=== PATIENT | female | born 1985 | race Caucasian/White ===

== ENCOUNTER 2017-02-20 12:13 | Emergency (ER) | payer MEDICAID ==
[~2017-02-20] VITALS: Ht 154.9 cm; Wt 59.7 kg
[~2017-02-20 12:13] MED LIST: FERR240T9 PO; PNV1TABL12 PO; PRO20 PO
[2017-02-20 12:19] VITALS: Ht 154.9 cm; Wt 59.7 kg
[2017-02-20 13:47] LABS: URINE BLOOD (Dip) POC 3+ (NEGATIVE)
[2017-02-20] MEDS ORDERED: NITR-58 PO (14:13)
[2017-02-20] MEDS ORDERED: PHEN-612 PO (14:13)
[2017-02-20] MEDS ORDERED: NAPR-688 PO (14:13)
[2017-02-20] MEDS ORDERED: CIPR500T4 PO (14:13)
--- NOTE | 2017-02-20 14:21 | ERD ---
ER Documentation Chief Complaint Chief Complaint HAS DYSURIA AND SOME BLOOD TINGED URINE HPI This 31-year-old female presents emergency room for burning pain on urination as well as suprapubic pain at times. No pain currently. No fevers. She is otherwise healthy. ROS All systems reviewed and are negative except as per history of present illness. Medications Home Meds Active Scripts Ciprofloxacin Hcl* (Ciprofloxacin Hcl*) 500 Mg Tablet, 500 MG PO BID, #10 TAB Prov:NOEL GALLEGOS DO 02/20/17 Nitrofurantoin Monohyd Macrocr* (Macrobid*) 100 Mg Capsr, 100 MG PO BID for 3 Days, CAP Prov:NOEL GALLEGOS DO 02/20/17 Phenazopyridine Hcl* (Phenazopyridine Hcl*) 100 Mg Tablet, 100 MG PO TID, #8 TAB Prov:NOEL GALLEGOS DO 02/20/17 Naproxen* (Naproxen*) 500 Mg Tablet, 500 MG PO BID Y for PAIN for 20 Days, TAB Prov:NOEL GALLEGOS DO 02/20/17 Reported Medications Nifedipine* (Procardia*) 20 Mg Cap, 20 MG PO Q6, CAP 02/03/14 Ferrous Gluconate (Iron) 1 Tab Tablet, 1 TAB PO DAILY 01/22/14 Pnv Cmb#21/Iron/Folic Acid ( Complete Caplet) 1 Tab Tablet, 1 TAB PO DAILY 09/18/13 Allergies Allergies: Coded Allergies: No Known Drug Allergies (Verified Allergy, Mild, 12/17/13) PMhx/Soc History of Surgery: No Anesthesia Reaction: No Hx Neurological Disorder: No Hx Respiratory Disorders: No Hx Cardiac Disorders: No Hx Psychiatric Problems: No Hx Miscellaneous Medical Probl: No Hx Alcohol Use: No Hx Substance Use: No Hx Tobacco Use: No Physical Exam Vitals Vital Signs Date Time Temp Pulse Resp B/P Pulse Ox O2 Delivery O2 Flow Rate FiO2 02/20/17 12:19 99.9 111 18 116/77 100 Physical Exam Const: [] No distress Abd: Soft, mild suprapubic tenderness, non distended. Normal bowel sounds Skin: No petechiae or rashes Back: No midline or flank tenderness Ext: No cyanosis, or edema Neur: Awake and alert Results 24 hrs Laboratory Tests Test 02/20/17 13:48 Bedside Urine pH (LAB) 7.0 Bedside Urine Protein (LAB) 1+ Bedside Urine Glucose (UA) Negative Bedside Urine Ketones (LAB) Negative Bedside Urine Blood 3+ Bedside Urine Nitrite (LAB) Negative Bedside Urine Leukocyte Esterase (L 2+ Procedures/MDM UTI and a healthy young adult female with no complications. Asymptomatic in the ER. Mild hematuria. UTI was confirmed and patient is not . I have low suspicion for bladder malignancy or pyelonephritis. I am going to discharge with Cipro as well as Pyridium and naproxen. Primary care follow-up in 2-3 days and return precautions given. Departure Diagnosis: Primary Impression: UTI (urinary tract infection) Condition: Stable Patient Instructions: Understanding Urinary Tract Infections (UTIs) Additional Instructions: Call your primary care doctor TOMORROW for an appointment during the next 2-3 days.See the doctor sooner or return here if your condition worsens before your appointment time. NOEL GALLEGOS DO Feb 20, 2017 14:21
== END 2017-02-20 14:17 | disposition home or self-care (01) ==
LOC: FTE 12:13
DX: N39.0 Urinary tract infection, site not specified (principal)
CPT/HCPCS: 81003; Z7502; 99284

== ENCOUNTER 2018-05-03 13:03 | Emergency (ER) | payer MEDICAID ==
[~2018-05-03] VITALS: Wt 68.8 kg
[~2018-05-03 13:03] MED LIST changes: +CIPR500T4 PO; +NAPR-688 PO; +NITR-58 PO; +PHEN-716 PO
[2018-05-03] MEDS ORDERED: LIDOCAINE 2% VISC 15 ML CUP PO ONE (15:30)
[2018-05-03] MEDS ORDERED: ACET-141 PO (16:19)
[2018-05-03] MEDS ORDERED: CPRHC10OT OTIC (16:21)
--- NOTE | 2018-05-03 16:24 | ERD ---
ER Documentation Chief Complaint Chief Complaint L>R ear pain x1.5mo; p azithro+ neomycin tx no relief. 14 wks preg ROS All systems reviewed and are negative except as per history of present illness. Medications Home Meds Active Scripts Ciprofloxacin Hcl/HC (Cipro HC Otic Suspension) 10 Ml Drops.susp, 4 DROP OTIC BID for outter ear infection for 7 Days, #1 BOTTLE Prov:SARAH GERMAN DO 05/03/18 Acetaminophen* (Acetaminophen*) 500 MG Extra Strength Tablet, 500 MG PO Q4H PRN for PAIN AND OR ELEVATED TEMP, #30 TAB Prov:SARAH GERMAN DO 05/03/18 Ciprofloxacin Hcl* (Ciprofloxacin Hcl*) 500 Mg Tablet, 500 MG PO BID, #10 TAB Prov:NOEL GALLEGOS DO 02/20/17 Nitrofurantoin Monohyd Macrocr* (Macrobid*) 100 Mg Capsr, 100 MG PO BID for 3 Days, CAP Prov:NOEL GALLEGOS DO 02/20/17 Phenazopyridine Hcl* (Phenazopyridine Hcl*) 100 Mg Tablet, 100 MG PO TID, #8 TAB Prov:NOEL GALLEGOS DO 02/20/17 Naproxen* (Naproxen*) 500 Mg Tablet, 500 MG PO BID PRN for PAIN for 20 Days, TAB Prov:NOEL GALLEGOS DO 02/20/17 Reported Medications Nifedipine* (Procardia*) 20 Mg Cap, 20 MG PO Q6, CAP 02/03/14 Ferrous Gluconate (Iron) 1 Tab Tablet, 1 TAB PO DAILY 01/22/14 Pnv Cmb#21/Iron/Folic Acid ( Complete Caplet) 1 Tab Tablet, 1 TAB PO DAILY 09/18/13 Allergies Allergies: Coded Allergies: No Known Drug Allergies (Verified Allergy, Mild, 12/17/13) PMhx/Soc History of Surgery: Yes (c section) Anesthesia Reaction: No Hx Neurological Disorder: No Hx Respiratory Disorders: No Hx Cardiac Disorders: No Hx Psychiatric Problems: No Hx Miscellaneous Medical Probl: No Hx Alcohol Use: No Hx Substance Use: No Hx Tobacco Use: No Physical Exam Vitals Vital Signs Date Temp Pulse Resp B/P (MAP) Pulse Ox O2 O2 Flow FiO2 Time Delivery Rate 05/03/18 98.6 88 16 126/65 98 13:14 (85) Physical Exam Const: No acute distress Head: Atraumatic Eyes: Normal Conjunctiva ENT: Normal External Ears, Nose and Mouth. Neck: Full range of motion. No meningismus. Resp: Clear to auscultation bilaterally Cardio: Regular rate and rhythm, no murmurs Abd: Soft, non tender, non distended. Normal bowel sounds Skin: No petechiae or rashes Back: No midline or flank tenderness Ext: No cyanosis, or edema Neur: Awake and alert Psych: Normal Mood and Affect Results 24 hrs Current Medications Medications Dose Sig/Racheal Start Time Status Last (Trade) Ordered Route PRN Stop Time Admin Dose Reason Admin Lidocaine 15 ml ONCE ONCE 05/03/18 DC 05/03/18 (Xylocaine PO 15:30 05/03/18 15:29 (Viscous)) 15:31 Departure Diagnosis: Primary Impression: Otitis externa Otitis externa type: diffuse Chronicity: acute Laterality: left Qualified Codes: H60.312 - Diffuse otitis externa, left ear Condition: Fair Patient Instructions: External Ear Infection (Adult) Referrals: [facility], [facility]1983 CLINICS YOU HAVE RECEIVED A MEDICAL SCREENING EXAM AND THE RESULTS INDICATE THAT YOU DO NOT HAVE A CONDITION THAT REQUIRES URGENT TREATMENT IN THE EMERGENCY DEPARTMENT. FURTHER EVALUATION AND TREATMENT OF YOUR CONDITION CAN WAIT UNTIL YOU ARE SEEN IN YOUR DOCTORS OFFICE WITHIN THE NEXT 1-2 DAYS. IT IS YOUR RESPONSIBILITY TO MAKE AN APPOINTMENT FOR FOLOW-UP CARE. IF YOU HAVE A PRIMARY DOCTOR --you should call your primary doctor and schedule an appointment IF YOU DO NOT HAVE A PRIMARY DOCTOR YOU CAN CALL OUR PHYSICIAN REFERRAL HOTLINE AT IF YOU CAN NOT AFFORD TO SEE A PHYSICIAN YOU CAN CHOSE FROM THE FOLLOWING [facility], [facility] CLINICS [facility] [address] [facility] [address] [facility]. [facility] [address] [facility] [address] [facility] [address] [facility]. [facility]. [address] Additional Instructions: Call your primary care doctor TOMORROW for an appointment during the next 1-2 days.See the doctor sooner or return here if your condition worsens before your appointment time. SARAH GERMAN DO May 03, 2018 16:24
[2018-05-03 16:56] VITALS: BP 121/68; PULSE 79; RESP 16
== END 2018-05-03 16:59 | disposition home or self-care (01) ==
LOC: FTE 13:03
DX: O99.89 Other specified diseases and conditions complicating pregnancy, childbirth and the puerperium (principal); H60.312 Diffuse otitis externa, left ear; Z3A.14 14 weeks gestation of pregnancy
CPT/HCPCS: 99283

== ENCOUNTER 2018-05-24 02:38 | Emergency (ER) | payer MEDICAID ==
[~2018-05-24] VITALS: Ht 157.5 cm; Wt 71.4 kg
[~2018-05-24 02:38] MED LIST changes: +ACET-141 PO; +CPRHC10OT OTIC
[2018-05-24 02:42] VITALS: Ht 157.5 cm; Wt 71.4 kg
--- NOTE | 2018-05-24 02:55 | ERD ---
ER Documentation Chief Complaint Chief Complaint LEFT EAR PAIN X YESTERDAY HPI 32-year-old female, presents the emergency department, complaining of 1 day with left ear pain sharp, constant, 8/10, associated with subjective fever, sore throat and general malaise. The patient has not taken any medications at this time. ROS All systems reviewed and are negative except as per history of present illness. Medications Home Meds Active Scripts Acetaminophen* (Tylenol*) 325 Mg Tablet, 2 TAB PO Q8 PRN for PAIN AND OR CONNIE VATED TEMP, #20 TAB Prov:MORENA DUNBAR MD 05/24/18 Amoxicillin* (Amoxicillin*) 500 Mg Cap, 500 MG PO TID for 7 Days, CAP Prov:MORENA DUNBAR MD 05/24/18 Neomycin/Polymyxin/Hydrocort* (Cortisporin* Otic) 10 Ml Susp, 4 DROP LEFT EAR QID for 7 Days, EA Prov:MORENA DUNBAR MD 05/24/18 Ciprofloxacin Hcl/HC (Cipro HC Otic Suspension) 10 Ml Drops.susp, 4 DROP OTIC BID for outter ear infection for 7 Days, #1 BOTTLE Prov:MAXISARAH DO 05/03/18 Acetaminophen* (Acetaminophen*) 500 MG Extra Strength Tablet, 500 MG PO Q4H PRN for PAIN AND OR ELEVATED TEMP, #30 TAB Prov:GERMANSARAH DO 05/03/18 Ciprofloxacin Hcl* (Ciprofloxacin Hcl*) 500 Mg Tablet, 500 MG PO BID, #10 TAB Prov:NOEL GALLEGOS DO 02/20/17 Nitrofurantoin Monohyd Macrocr* (Macrobid*) 100 Mg Capsr, 100 MG PO BID for 3 Days, CAP Prov:NOEL GALLEGOS DO 02/20/17 Phenazopyridine Hcl* (Phenazopyridine Hcl*) 100 Mg Tablet, 100 MG PO TID, #8 TAB Prov:NOEL GALLEGOS DO 02/20/17 Naproxen* (Naproxen*) 500 Mg Tablet, 500 MG PO BID PRN for PAIN for 20 Days, TAB Prov:NOEL GALLEGOS DO 02/20/17 Reported Medications Nifedipine* (Procardia*) 20 Mg Cap, 20 MG PO Q6, CAP 02/03/14 Ferrous Gluconate (Iron) 1 Tab Tablet, 1 TAB PO DAILY 01/22/14 Pnv Cmb#21/Iron/Folic Acid ( Complete Caplet) 1 Tab Tablet, 1 TAB PO DAILY 09/18/13 Allergies Allergies: Coded Allergies: No Known Drug Allergies (Verified Allergy, Mild, 12/17/13) PMhx/Soc Medical and Surgical Hx: pt denies Medical Hx, pt denies Surgical Hx History of Surgery: Yes (c section) Anesthesia Reaction: No Hx Neurological Disorder: No Hx Respiratory Disorders: No Hx Cardiac Disorders: No Hx Psychiatric Problems: No Hx Miscellaneous Medical Probl: No Hx Alcohol Use: No Hx Substance Use: No Hx Tobacco Use: No Smoking Status: Never smoker FmHx Family History: No diabetes, No coronary disease Physical Exam Vitals Vital Signs Date Temp Pulse Resp B/P (MAP) Pulse Ox O2 O2 Flow FiO2 Time Delivery Rate 05/24/18 87 16 125/70 100 Room Air 04:31 (88) 05/24/18 98.2 97 22 116/69 97 02:42 (85) Physical Exam Patient alert, oriented, vital signs stable. HEENT: Normocephalic, atraumatic. EYES: PERRLA, EOMI, Sclera and conjunctiva appear normal. EARS: Left ear with significant tympanic membrane erythema, retraction and opacity with edema of the canal. Contralateral ear normal. THROAT: Erythematous oropharynx. NECK: Supple, No lymphadenopathy. Full ROM without pain or tenderness. HEART: RRR, no rubs, murmurs, clicks or gallops. LUNGS: Clear to auscultation. ABDOMEN: Soft, non-tender without masses or hepatosplenomegaly. EXTREMITIES: No edema bilaterally. BACK: Full ROM, no deformity, normal back exam NEURO: Cranial nerves grossly intact, no motor or sensory deficit Results 24 hrs Current Medications Medications Dose Sig/Racheal Start Time Status Last (Trade) Ordered Route PRN Stop Time Admin Dose Reason Admin 1 tab ONCE ONCE 05/24/18 DC 05/24/18 Acetaminophen PO 03:30 03:27 / 05/24/18 03:31 Hydrocodone Bitart (Jewell (5/325)) Procedures/MDM Vital signs stable, differential diagnosis include but not limited to: infection bacterial/viral/fungal. Tonsillitis, eustachian dysfunction, allergies, foreign body, cholesteatoma. Less likely mastoiditis, malignant otitis, meningitis. Physical examination and clinical presentation consistent most likely with left otitis media. During the ED course the patient remained stable, no new complaints. Clinical impression discussed with the patient who agrees with management. The patient is stable to be treated outpatient and will be discharged home with a Rx for antibiotics and ibuprofen. Some side effects of prescribed medications (headache, rash, nausea, vomiting, diarrhea, drowsiness, bleeding, hypertension, interactions with other medications) were reviewed. The patient was instructed to follow up with the primary care provider in the next 48h. If symptoms persist, worsen or new symptoms develop, then patient should return to the ED immediately. Disclaimer: Inadvertent spelling and grammatical errors are likely due to EHR/dictation software use and do not reflect on the overall quality of patient care. Also, please note that the electronic time recorded on this note does not necessarily reflect the actual time of the patient encounter. Departure Diagnosis: Primary Impression: Left otitis media Condition: Stable Additional Instructions: Muchas willa por [facility] para pyle servicio. Esperamos que en pyle visita a la femi de emergencia pyle problema medico haya sido solucionado y que se sienta mucho mejor. Para estar seguros que pyle mejoria sigue en proceso, le pedimos el favor de hacer andrew red de seguimiento medico con pyle doctor primario en los proximos 2-4 payan. Lleve con usted estos documentos y las medicinas recetadas. Si efrain sintomas empeoran, NO SE ESPERE, por favor regrese a femi de emergencia INMEDIATAMENTE. En silvana que usted no tenga un mdico de atencin primaria: Llame al mdico o clnica comunitaria de referencia que aparece abajo didi las horas de consultorio para hacer andrew red para que le vean. CLINICAS: [facility] 284 [phone] [address] [facility] 528 [phone] [address] [facility] 596 [phone] [address] [facility] [phone] [address] [facility] 430 [phone] [address] [facility]. [phone] MORENA MATHEW MD May 24, 2018 02:55
[2018-05-24] MEDS ORDERED: HYDROCODONE/APAP (5/325) TAB PO ONE (03:30)
[2018-05-24] MEDS ORDERED: NPH10OT LEFT EAR (04:20)
[2018-05-24] MEDS ORDERED: AMOX500C2 PO (04:20)
[2018-05-24] MEDS ORDERED: ACET325T33 PO (04:20)
[2018-05-24 04:31] VITALS: BP 125/70; PULSE 87; RESP 16
== END 2018-05-24 04:31 | disposition home or self-care (01) ==
LOC: FTE 02:38
DX: H66.92 Otitis media, unspecified, left ear (principal)
CPT/HCPCS: Z7502; Z7610; 99283

== ENCOUNTER 2018-06-08 11:56 | Emergency (ER) | payer MEDICAID ==
[~2018-06-08] VITALS: Ht 167.6 cm; Wt 73.3 kg
[~2018-06-08 11:56] MED LIST changes: +ACET325T33 PO; +AMOX500C2 PO; +NPH10OT LEFT EAR
[2018-06-08 11:58] VITALS: BP 125/58; PULSE 98; RESP 20; Ht 167.6 cm; Wt 73.3 kg
[2018-06-08] MEDS ORDERED: NPH10OT RIGHT EAR (13:37)
--- NOTE | 2018-06-08 13:50 | ERD ---
ER Documentation Chief Complaint Chief Complaint Complains of right ear pain x 3 days HPI 32-year-old female patient with no significant past medical history, currently presents to the ED complaining of right ear pain that started 3 days ago. Patient denies using Q-tips. Patient denies any vaginal bleeding, vaginal discharge, chest pain, shortness of breath, nausea, vomiting, diarrhea dysuria, urgency, frequency, hematuria. She reports that she has seen an ears and nose throat specialist, was given a prescription for ciprofloxacin for the left ear, 2 weeks ago. Now reports that she feels like she has a right ear infection. ROS All systems reviewed and are negative except as per history of present illness. Medications Home Meds Active Scripts Neomycin/Polymyxin/Hydrocort* (Cortisporin* Otic) 10 Ml Susp, 4 DROP RIGHT EAR QID, #1 EA Prov:KRISSY HYDE PA-C 06/08/18 Acetaminophen* (Tylenol*) 325 Mg Tablet, 2 TAB PO Q8 PRN for PAIN AND OR ELEVATED TEMP, #20 TAB Prov:MORENA DUNBAR MD 05/24/18 Amoxicillin* (Amoxicillin*) 500 Mg Cap, 500 MG PO TID for 7 Days, CAP Prov:MORENA DUNBAR MD 05/24/18 Neomycin/Polymyxin/Hydrocort* (Cortisporin* Otic) 10 Ml Susp, 4 DROP LEFT EAR QID for 7 Days, EA Prov:MORENA DUNBAR MD 05/24/18 Ciprofloxacin Hcl/HC (Cipro HC Otic Suspension) 10 Ml Drops.susp, 4 DROP OTIC BID for outter ear infection for 7 Days, #1 BOTTLE Prov:SARAH GERMAN DO 05/03/18 Acetaminophen* (Acetaminophen*) 500 MG Extra Strength Tablet, 500 MG PO Q4H PRN for PAIN AND OR ELEVATED TEMP, #30 TAB Prov:SARAH GERMAN DO 05/03/18 Ciprofloxacin Hcl* (Ciprofloxacin Hcl*) 500 Mg Tablet, 500 MG PO BID, #10 TAB Prov:NOEL GALLEGOS DO 02/20/17 Nitrofurantoin Monohyd Macrocr* (Macrobid*) 100 Mg Capsr, 100 MG PO BID for 3 Days, CAP Prov:NOEL GALLEGOS DO 02/20/17 Phenazopyridine Hcl* (Phenazopyridine Hcl*) 100 Mg Tablet, 100 MG PO TID, #8 TAB Prov:NOEL GALLEGOS DO 02/20/17 Naproxen* (Naproxen*) 500 Mg Tablet, 500 MG PO BID PRN for PAIN for 20 Days, TAB Prov:NOEL GALLEGOS DO 02/20/17 Reported Medications Nifedipine* (Procardia*) 20 Mg Cap, 20 MG PO Q6, CAP 02/03/14 Ferrous Gluconate (Iron) 1 Tab Tablet, 1 TAB PO DAILY 01/22/14 Pnv Cmb#21/Iron/Folic Acid ( Complete Caplet) 1 Tab Tablet, 1 TAB PO DAILY 09/18/13 Allergies Allergies: Coded Allergies: No Known Drug Allergies (Verified Allergy, Mild, 12/17/13) PMhx/Soc History of Surgery: Yes (c section) Anesthesia Reaction: No Hx Neurological Disorder: No Hx Respiratory Disorders: No Hx Cardiac Disorders: No Hx Psychiatric Problems: No Hx Miscellaneous Medical Probl: No Hx Alcohol Use: No Hx Substance Use: No Hx Tobacco Use: No Smoking Status: Never smoker FmHx Family History: No diabetes, No coronary disease Physical Exam Vitals Vital Signs Date Temp Pulse Resp B/P (MAP) Pulse Ox O2 O2 Flow FiO2 Time Delivery Rate 06/08/18 99.1 98 20 125/58 99 11:58 (80) Physical Exam Const: [id number], well-nourished. In no acute distress. Head: Atraumatic, normocephalic Eyes: Normal Conjunctiva without injection. No purulent discharge. PERRL. EOMI ENT: Normal external ear. Slight purulent discharge noted of the right ear canal with some erythema over right TM. No tenderness palpation of the bilateral mastoids. Perforated left TM. Nasal canal clear with normal turbinates. Moist oropharynx without tonsillar exudates. Non-erythematous pharynx. Uvula midline. No drooling. No trismus. Neck: Full range of motion. No meningismus. No cervical lymphadenopathy. Resp: Clear to auscultation bilaterally. No wheezing, rhonchi, rales, or crackles. No accessory muscle use. No retractions. Cardio: Regular rate and rhythm. No murmurs, rubs or gallops. Abd: Soft, non tender, non distended. Normal bowel sounds. No palpable masses. No rebound tenderness. No guarding. Skin: No petechiae or rashes Back: No midline tenderness. No CVA tenderness. Ext: No cyanosis, or edema. Neur: Awake and alert. Psych: Normal Mood and Affect Procedures/MDM 32-year-old female patient with no significant past medical history presents to ED complaining of right ear pain that started 3 days ago. Patient is afebrile and nontoxic-appearing. Patient's physical exam is consistent with otitis externa with some discharge noted of her right ear canal. TMs pearly doll however slightly erythematous. Patient does not have tenderness to palpation of mastoid. Low suspicion for otitis media or mastoiditis. Patient's physical exam include lungs which were clear to auscultation and a normal pulse oximetry. Patient is speaking in full sentences. There is a low suspicion for tympanic membrane rupture, pneumonia, epiglottitis, croup, viral/strep pharyngitis, sinusitis, peritonsillar abscess, retropharyngeal abscess, meningitis, sepsis, acute abdomen or other emergent conditions. Discussed with Dr. Holland who agreed with management and discharge plan. Since patient that since she has a perforated TM of the left ear, strictly instructed not to use Cortisporin as this is an ototoxic medication. Safe for right ear. Diagnosis: Right Ear Pain Discharge medications: Cortisporin Follow up with primary care physician in 1-2 days. Instructed patient to return to the ED sooner for any worsening symptoms. Patient's questions were answered. Patient is hemodynamically stable. Patient understood and agreed with discharge plan. Patient discharged stable. Disclaimer: Inadvertent spelling and grammatical errors are likely due to EHR/dictation software use and do not reflect on the overall quality of patient care. Also, please note that the electronic time recorded on this note does not necessarily reflect the actual time of the patient encounter. Departure Diagnosis: Primary Impression: Right ear pain Condition: Stable Patient Instructions: External Ear Infection (Adult) Referrals: COMMUNITY CLINICS YOU HAVE RECEIVED A MEDICAL SCREENING EXAM AND THE RESULTS INDICATE THAT YOU DO NOT HAVE A CONDITION THAT REQUIRES URGENT TREATMENT IN THE EMERGENCY DEPARTMENT. FURTHER EVALUATION AND TREATMENT OF YOUR CONDITION CAN WAIT UNTIL YOU ARE SEEN IN YOUR DOCTORS OFFICE WITHIN THE NEXT 1-2 DAYS. IT IS YOUR RESPONSIBILITY TO MAKE AN APPOINTMENT FOR FOLOW-UP CARE. IF YOU HAVE A PRIMARY DOCTOR --you should call your primary doctor and schedule an appointment IF YOU DO NOT HAVE A PRIMARY DOCTOR YOU CAN CALL OUR PHYSICIAN REFERRAL HOTLINE AT IF YOU CAN NOT AFFORD TO SEE A PHYSICIAN YOU CAN CHOSE FROM THE FOLLOWING [facility] [address] [facility] [address] [facility] [address] [facility] [address] [facility] [address] [facility]. [facility] [address] [facility]. [facility] YOU HAVE RECEIVED A MEDICAL SCREENING EXAM AND THE RESULTS INDICATE THAT YOU DO NOT HAVE A CONDITION THAT REQUIRES URGENT TREATMENT IN THE EMERGENCY DEPARTMENT. FURTHER EVALUATION AND TREATMENT OF YOUR CONDITION CAN WAIT UNTIL YOU ARE SEEN IN YOUR DOCTORS OFFICE WITHIN THE NEXT 1-2 DAYS. IT IS YOUR RESPONSIBILITY TO MAKE AN APPOINTMENT FOR FOLOW-UP CARE. IF YOU HAVE A PRIMARY DOCTOR --you should call your primary doctor and schedule and appointment IF YOU DO NOT HAVE A PRIMARY DOCTOR YOU CAN CALL OUR PHYSICIAN REFERRAL HOTLINE AT . IF YOU CAN NOT AFFORD TO SEE A PHYSICIAN YOU CAN CHOSE FROM THE FOLLOWING [facility]: [facility] [address] [place] [address] [facility] [address] [place] [address] [facility] [address] [place] [address] [facility] Additional Instructions: Call your primary care doctor TOMORROW for an appointment during the next 2-3 days for a referral to see an ears nose throat specialist.See the doctor sooner or return here if your condition worsens before your appointment time. KRISSY HYDE PA-C Jun 08, 2018 13:50
== END 2018-06-08 14:14 | disposition home or self-care (01) ==
LOC: FTE 11:56
DX: O99.89 Other specified diseases and conditions complicating pregnancy, childbirth and the puerperium (principal); H92.01 Otalgia, right ear; Z3A.00 Weeks of gestation of pregnancy not specified
CPT/HCPCS: 99283

== ENCOUNTER 2018-08-30 13:55 | Emergency (ER) | payer MEDICAID ==
[~2018-08-30] VITALS: Ht 160 cm; Wt 80.5 kg
[~2018-08-30 13:55] MED LIST changes: +NPH10OT RIGHT EAR
[2018-08-30 14:03] VITALS: Ht 160 cm; Wt 80.5 kg
[2018-08-30] MEDS ORDERED: SOD CHLORIDE 0.9% 1,000 ML IV STA (14:17)
--- NOTE | 2018-08-30 14:22 | ERD ---
ER Documentation Chief Complaint Chief Complaint sent from the clinic for panic/anxiety, tachycardia; 31 wks preg HPI 33-year-old woman is 31 weeks by dates and previously confirmed normal ultrasound presents with anxiety, palpitations, chest discomfort. Symptoms began while at the medical clinic she was therefore routine follow-up. She states she has had milder symptoms similar to this when her fetus moves or if she is laying in an awkward position but denies symptoms lasting this long. She has had no cough, no fevers or chills, no shortness of breath, no vomiting or diarrhea, no dysuria or vaginal discharge. ROS All systems reviewed and are negative except as per history of present illness. Medications Home Meds Active Scripts Neomycin/Polymyxin/Hydrocort* (Cortisporin* Otic) 10 Ml Susp, 4 DROP RIGHT EAR QID, #1 EA Prov:KRISSY HYDE PA-C 06/08/18 Acetaminophen* (Tylenol*) 325 Mg Tablet, 2 TAB PO Q8 PRN for PAIN AND OR ELEVATED TEMP, #20 TAB Prov:MORENA DUNBAR MD 05/24/18 Amoxicillin* (Amoxicillin*) 500 Mg Cap, 500 MG PO TID for 7 Days, CAP Prov:MORENA DUNBAR MD 05/24/18 Neomycin/Polymyxin/Hydrocort* (Cortisporin* Otic) 10 Ml Susp, 4 DROP LEFT EAR QID for 7 Days, EA Prov:MORENA DUNBAR MD 05/24/18 Ciprofloxacin Hcl/HC (Cipro HC Otic Suspension) 10 Ml Drops.susp, 4 DROP OTIC BID for outter ear infection for 7 Days, #1 BOTTLE Prov:SARAH GERMAN DO 05/03/18 Acetaminophen* (Acetaminophen*) 500 MG Extra Strength Tablet, 500 MG PO Q4H PRN for PAIN AND OR ELEVATED TEMP, #30 TAB Prov:SARAH GERMAN DO 05/03/18 Ciprofloxacin Hcl* (Ciprofloxacin Hcl*) 500 Mg Tablet, 500 MG PO BID, #10 TAB Prov:NOEL GALLEGOS DO 02/20/17 Nitrofurantoin Monohyd Macrocr* (Macrobid*) 100 Mg Capsr, 100 MG PO BID for 3 Days, CAP Prov:NOEL GALLEGOS DO 02/20/17 Phenazopyridine Hcl* (Phenazopyridine Hcl*) 100 Mg Tablet, 100 MG PO TID, #8 TAB Prov:NOEL GALLEGOS DO 02/20/17 Naproxen* (Naproxen*) 500 Mg Tablet, 500 MG PO BID PRN for PAIN for 20 Days, TAB Prov:NOEL GALLEGOS DO 02/20/17 Reported Medications Nifedipine* (Procardia*) 20 Mg Cap, 20 MG PO Q6, CAP 02/03/14 Ferrous Gluconate (Iron) 1 Tab Tablet, 1 TAB PO DAILY 01/22/14 Pnv Cmb#21/Iron/Folic Acid ( Complete Caplet) 1 Tab Tablet, 1 TAB PO DAILY 09/18/13 Allergies Allergies: Coded Allergies: No Known Drug Allergies (Verified Allergy, Mild, 12/17/13) PMhx/Soc None History of Surgery: Yes (c section) Anesthesia Reaction: No Hx Neurological Disorder: No Hx Respiratory Disorders: No Hx Cardiac Disorders: No Hx Psychiatric Problems: No Hx Miscellaneous Medical Probl: No Hx Alcohol Use: No Hx Substance Use: No Hx Tobacco Use: No Physical Exam Vitals Vital Signs Date Temp Pulse Resp B/P (MAP) Pulse Ox O2 O2 Flow FiO2 Time Delivery Rate 08/30/18 98.4 95 18 113/71 100 Room Air 16:03 (85) 08/30/18 97 18 100/49 100 Room Air 16:00 (66) 08/30/18 97.8 167 18 122/81 100 14:03 (95) Physical Exam GENERAL: Well-developed, well-nourished, well-hydrated, appears anxious and tearful, afebrile HEENT: Moist mucous membranes, pink conjunctiva, no cervical spine tenderness or step-off deformities, no goiter, no jaundice or icterus, extraocular movements intact without pain. No submandibular induration, and no pharyngeal erythema NEURO: Alert and oriented 3, cranial nerves II through XII intact bilaterally, pupils equal round reactive to light, no focal deficits or facial asymmetry, sensation intact distally Strength 5/5 in upper and lower extremities bila terally CARDIAC: Tachycardic and regular, no murmurs rubs or gallops LUNGS: Clear bilaterally no wheezing crackles or stridor ABDOMEN: Soft nontender, no guarding, no rigidity, no rebound, no psoas sign no obturator sign. Gravid abdomen SKIN: Warm and dry to touch, no abrasions, contusions, or hematomas, no lacerations, no ecchymosis, no target lesions, and without ulcers EXTREMITIES: No clubbing cyanosis or edema, calves are bilaterally symmetrical, no Homans sign, no popliteal cord sign. Distal pulses equal and bilateral PSYCH: Anxious and tearful Result Diagram: 08/30/18 1423 08/30/18 1423 Results 24 hrs Laboratory Tests Test 08/30/18 14:23 White Blood Count 10.5 10^3/ul Red Blood Count 4.08 10^6/ul Hemoglobin 12.6 g/dl Hematocrit 36.0 % Mean Corpuscular Volume 88.2 fl Mean Corpuscular Hemoglobin 30.9 pg Mean Corpuscular Hemoglobin Concent 35.0 g/dl Red Cell Distribution Width 13.0 % Platelet Count 244 10^3/UL Mean Platelet Volume 9.6 fl Immature Granulocytes % 4.200 % Neutrophils % 67.5 % Lymphocytes % 17.8 % Monocytes % 8.2 % Eosinophils % 1.4 % Basophils % 0.9 % Nucleated Red Blood Cells % 0.0 /100WBC Immature Granulocytes # 0.440 10^3/ul Neutrophils # 7.1 10^3/ul Lymphocytes # 1.9 10^3/ul Monocytes # 0.9 10^3/ul Eosinophils # 0.2 10^3/ul Basophils # 0.1 10^3/ul Nucleated Red Blood Cells # 0.0 10^3/ul Urine Color STRAW Urine Clarity CLEAR Urine pH 9.0 Urine Specific [place] 1.004 Urine Ketones TRACE mg/dL Urine Nitrite NEGATIVE mg/dL Urine Bilirubin NEGATIVE mg/dL Urine Urobilinogen NEGATIVE mg/dL Urine Leukocyte Esterase NEGATIVE Martinez/ul Urine Hemoglobin NEGATIVE mg/dL Urine Glucose NEGATIVE mg/dL Urine Total Protein NEGATIVE mg/dl Sodium Level 138 mmol/L Potassium Level 3.7 mmol/L Chloride Level 105 mmol/L Carbon Dioxide Level 22 mmol/L Anion Gap 11 Blood Urea Nitrogen 6 mg/dl Creatinine 0.48 mg/dl Est Glomerular Filtrat Rate mL/min > 60 mL/min Glucose Level 100 mg/dl Calcium Level 9.6 mg/dl Total Bilirubin 0.7 mg/dl Direct Bilirubin 0.00 mg/dl Indirect Bilirubin 0.7 mg/dl Aspartate Amino Transf (AST/SGOT) 19 IU/L Alanine Aminotransferase (ALT/SGPT) 17 IU/L Alkaline Phosphatase 80 IU/L Troponin I 0.039 ng/ml Total Protein 7.4 g/dl Albumin 4.0 g/dl Globulin 3.40 g/dl Albumin/Globulin Ratio 1.17 Lipase 167 U/L Current Medications Medications Dose Sig/Racheal Start Time Status Last (Trade) Ordered Route PRN Stop Time Admin Dose Reason Admin Sodium 1,000 ml @ Q1H STAT 08/30/18 DC 08/30/18 Chloride 1,000 mls/hr IV 14:17 08/30/18 14:28 15:16 Lorazepam 0.5 mg ONCE ONCE 08/30/18 DC 08/30/18 (Ativan) PO 14:30 08/30/18 14:27 14:31 Labetalol 100 mg ONCE ONCE 08/30/18 DC 08/30/18 HCl PO 14:30 08/30/18 14:28 (Normodyne) 14:31 Diltiazem 20 mg ONCE ONCE 08/30/18 DC 08/30/18 HCl IV 16:00 08/30/18 15:57 (Cardizem Iv) 16:01 Procedures/[facility] IV line was established patient was placed on manager beverage rhythm strip revealed a narrow complex tachycardia at 180 bpm with upright P and T waves. Patient was afebrile EKG performed, read by me revealed a narrow complex tachycardia at 169 bpm, normal axis, no concerning ST elevations or depressions noted. Sinus tachycardia versus SVT I administered 1 L normal saline IV, lorazepam 0.5 mg p.o., and labetalol 100 mg p.o. x1 Patient remained tachycardic despite above medications so I had to administer d iltiazem 20 mg IV. I did speak to the patient and her who was at the bedside regarding all of the medications I administered today prior to administering them and spoke about the risks of these medications to the fetus. Patient agreed to all the medications prior to their administration although she did refuse chest x-ray despite my explanation and the use of the lead gown she still did not want the chest x-ray. Repeat EKG after diltiazem therapy revealed a normal sinus rhythm at 93 bpm, normal axis, narrow QRS complex, no concerning ST elevations or depressions noted Critical Care: Time: 48 minutes, this was time separate from other billable procedures. Treatments/Evaluations: Close monitoring and treatment of unstable vital signs, cardiorespiratory, and neurologic status, while maintaining tight balance of fluid, respiratory, and cardiac interventions. CBC and electrolytes are normal, liver function tests were normal, troponin was negative, urinalysis was negative for infection Patient's vital signs are normal at this time and oxygen saturation on room air is 100%. My suspicion for DVT/pulmonary embolism is very low and patient can be discharged from the ER although she will go up to the obstetrics department for monitoring Differential diagnoses considered, included but not limited to acute coronary syndrome, pulmonary embolism, aortic dissection, abdominal aortic aneurysm, sepsis, stroke, meningitis, encephalitis, pneumonia, appendicitis, bhupendra cystitis, bowel obstruction, pyelonephritis, nephrolithiasis, cystitis, as well as metabolic, hematologic, and electrolyte abnormalities. As well as abscess, cellulitis, fractures, and dislocations. Patient feels much better at this time, and vital signs are normal, symptoms have improved. I did give strict instructions to return to the ED if symptoms continue or worsen, patient will otherwise follow-up with primary care physician. Patient understood instructions and agreed to plan. Disclaimer: Inadvertent spelling and grammatical errors are likely due to EHR/dictation software use and do not reflect on the overall quality of patient care. Also, please note that the electronic time recorded on this note does not necessarily reflect the actual time of the patient encounter. Departure Diagnosis: Primary Impression: Tachycardia Additional Impressions: SVT (supraventricular tachycardia) Third trimester Condition: Good ALYSE GAMBOA MD Aug 30, 2018 14:21
[2018-08-30] MEDS ORDERED: LABETALOL 100 MG TAB PO ONE (14:30)
[2018-08-30] MEDS ORDERED: LORAZEPAM 0.5 MG TAB PO ONE (14:30)
[2018-08-30] MEDS ORDERED: DILTIAZEM 25 MG INJ IV ONE (16:00)
[2018-08-30 17:00] VITALS: BP 103/56; PULSE 92; RESP 18
== END 2018-08-30 17:56 | disposition home or self-care (01) ==
LOC: E/R 13:55
DX: O99.413 Diseases of the circulatory system complicating pregnancy, third trimester (principal); I47.1 Supraventricular tachycardia; Z3A.31 31 weeks gestation of pregnancy
CPT/HCPCS: 36415; 80053; 81003; 83690; 84484; 85025; 93005; 96374; J7030; Z7502; Z7610

== ENCOUNTER 2018-08-30 17:56 | Inpatient (IN) | payer MEDICAID ==
[~2018-08-30] VITALS: Ht 160 cm; Wt 80.0 kg
[2018-08-30 18:27] VITALS: BP 101/58; PULSE 92; RESP 18; Ht 160 cm; Wt 80.0 kg
[2018-08-30] MEDS ORDERED: NACL 0.9% 3 ML SYG IV SCH (23:30)
[2018-08-31] VITALS (7 sets, daily range): BP systolic 91–106; BP diastolic 51–66; PULSE 80–99; RESP 18–24
--- NOTE | 2018-08-31 06:49 | HP ---
Date/Time of Note Date/Time of Note DATE: 08/31/18 TIME: 06:47 Assessment/Plan VTE Prophylaxis Pharmacological prophylaxis: heparin Lines/Catheters IV Catheter Type (from Nrsg): Saline Lock Assessment/Plan Assessment/Plan 1. Chest pain, tachycardia: -Telemetry monitoring for observation -TSH is pending, free T4 slightly elevated -Check twelve-lead EKG -Serial troponin -2D echo cardiology consult 2. 32 weeks : Management per OB Results 24hrs Laboratory Tests Test 08/30/18 19:15 08/30/18 21:37 Bedside Glucose 103 Thyroid Stimulating Hormone (TSH) 1.280 Free Thyroxine Index 2.58 Thyroxine (T4) 13.6 H Triiodothyronine (T3) Uptake 19.0 L HPI/ROS Admit Date/Time Admit Date/Time Aug 30, 2018 at 23:55 Hx of Present Illness Patient is a 33-year-old female who is 31 weeks who was brought to the hospital for tachycardia. Patient was having regular checkup. She said she stood up to go to the bathroom when she felt dizzy and pressure on her chest is radiating to her left shoulder. She said her heart rate was found to be as high as 183. Denied a history of arrhythmia or tachycardia. Currently patient does not have any complaints. Currently denies chest pain, shortness of breath, dizziness, palpitations. Heart rate has been in 90s. Thyroid profile was checked and free T4 is a slightly elevated. TSH is been pending. Patient will be admitted to telemetry unit for observation. PMH/Family/Social Past Medical History Past Surgical Hx: other Family History Significant Family History: no pertinent family hx Social History Alcohol Use: none Smoking Status: Never smoker Drug Use: none Exam Constitutional: other (No acute distress) Head: normocephalic, atraumatic Eyes: EOMI, PERRL Respiratory: clear to auscultation, normal air movement Cardiovascular: regular rate and rhythm Gastrointestinal: soft Extremities: normal pulses Medications Current Medications IV Flush (NS 3 ml) 3 ml PER PROTOCOL IV ; Start 08/30/18 at 23:30 Coded Allergies: No Known Drug Allergies (Verified Allergy, Mild, 12/17/13) Social History Smoking Status: Never smoker Exam/Review of Systems Vital Signs Vitals Vital Signs Date Temp Pulse Resp B/P (MAP) Pulse Ox O2 O2 Flow FiO2 Time Delivery Rate 08/31/18 98.0 87 22 104/54 99 Room Air 03:09 (71) Intake and Output 08/30/18 08/30/18 08/31/18 1515:00 23:00 07:00 IntakeIntake Total 200 ml BalanceBalance 200 ml REGINALDO CABRERA MD Aug 31, 2018 06:49
[2018-08-31] MEDS ORDERED: ACETAMINOPHEN 325 MG TAB PO PRN (09:30)
[2018-08-31] MEDS ORDERED: SOD CHLORIDE 0.9% 250 ML IV ONE (09:30)
[2018-08-31] MEDS: PRENATAL VITAMIN PO SCH (10:26)
--- NOTE | 2018-08-31 14:30 | PN ---
Date/Time of Note Date/Time of Note DATE: 08/31/18 TIME: 14:25 Assessment/Plan VTE Prophylaxis Risk score (from Nsg)>0 risk: 3 SCD applied (from Nsg): Yes Pharmacological prophylaxis: NA/contraindicated Pharm contraindication: low risk/ambulating Lines/Catheters IV Catheter Type (from Nrsg): Saline Lock Assessment/Plan Hospital Course Assessment and plan 1. Chest pain rule out ACS. VTE. Stable consulted cardiology, OB 2. Abnormal troponin, review echo. May need VQ or CTA 3. 31-32 weeks, stable, observe 4. Anemia 5. Subclinical hypothyroidism 6. Exertional dyspnea 7. Gestational diabetes? 8. H/o section Subjective: Pressure-like chest discomfort yesterday with minimal exertion. Patient left the house to go to her clinic. No pleuritic pain. No recent travel ill contacts calf pain fever. She may have been diaphoretic during the pain. Girard a cold sensation in both of her hands. Pain lasted maybe 3 to 4 hours until she was in the ER and received a certain medication. No previous similar discomfort. I updated the patient and her significant other regarding the likelihood of requiring other testing such as a CAT scan. There they are aw are of the patient's symptoms/ abnormal labs that requires further testing. -Cardiac risk factors: None O: Vital signs stable sinus tachycardia PE No pallor JVD Regular no mrg Clear no tachypnea Bs dimin nt nd gravid No edema/Homans Result Diagram: 08/31/18 0655 08/31/18 0655 Results 24hrs Laboratory Tests Test 08/30/18 19:15 08/30/18 21:37 08/31/18 06:55 08/31/18 10:00 Bedside Glucose 103 Thyroid Stimulating 1.280 Hormone (TSH) Free Thyroxine Index 2.58 Thyroxine (T4) 13.6 H Triiodothyronine (T3) 19.0 L Uptake White Blood Count 11.6 H Red Blood Count 3.44 L Hemoglobin 10.6 L Hematocrit 30.6 L Mean Corpuscular Volume 89.0 Mean Corpuscular 30.8 Hemoglobin Mean Corpuscular 34.6 Hemoglobin Concent Red Cell Distribution 13.2 Width Platelet Count 219 Mean Platelet Volume 9.8 Immature Granulocytes % 3.200 H Neutrophils % 69.3 Lymphocytes % 17.7 Monocytes % 7.5 Eosinophils % 1.5 Basophils % 0.8 Nucleated Red Blood 0.0 Cells % Immature Granulocytes # 0.370 H Neutrophils # 8.0 H Lymphocytes # 2.1 Monocytes # 0.9 Eosinophils # 0.2 Basophils # 0.1 Nucleated Red Blood 0.0 Cells # Sodium Level 138 Potassium Level 3.7 Chloride Level 109 Carbon Dioxide Level 21 Anion Gap 8 Blood Urea Nitrogen 4 L Creatinine 0.35 L Est Glomerular Filtrat > 60 Rate mL/min Glucose Level 88 Calcium Level 8.4 Magnesium Level 1.7 Total Bilirubin 1.0 Direct Bilirubin 0.00 Indirect Bilirubin 1.0 Aspartate Amino 22 Transf (AST/SGOT) Alanine 16 Aminotransferase (ALT/SG PT) Alkaline Phosphatase 68 Total Protein 6.5 Albumin 3.3 Globulin 3.20 Albumin/Globulin Ratio 1.03 Creatine Kinase 56 Creatine Kinase Index 4.1 Creatinine Kinase MB 2.28 (Mass) Troponin I 0.194 *H Test 08/31/18 13:00 Urine Color YELLOW Urine Clarity CLEAR Urine pH 6.0 Urine Specific [place] 1.005 Urine Ketones NEGATIVE Urine Nitrite NEGATIVE Urine Bilirubin NEGATIVE Urine Urobilinogen NEGATIVE Urine Leukocyte Esterase NEGATIVE Urine Hemoglobin NEGATIVE Urine Glucose NEGATIVE Urine Total Protein NEGATIVE Exam/Review of Systems Exam Vitals Vital Signs Date Temp Pulse Resp B/P (MAP) Pulse Ox O2 O2 Flow FiO2 Time Delivery Rate 08/31/18 98.0 99 19 91/52 (65) 100 Room Air 11:39 Intake and Output 08/30/18 08/30/18 08/31/18 1515:00 23:00 07:00 IntakeIntake Total 600 ml BalanceBalance 600 ml Results Results 24hrs Laboratory Tests Test 08/30/18 19:15 08/30/18 21:37 08/31/18 06:55 08/31/18 10:00 Bedside Glucose 103 Thyroid Stimulating 1.280 Hormone (TSH) Free Thyroxine Index 2.58 Thyroxine (T4) 13.6 H Triiodothyronine (T3) 19.0 L Uptake White Blood Count 11.6 H Red Blood Count 3.44 L Hemoglobin 10.6 L Hematocrit 30.6 L Mean Corpuscular Volume 89.0 Mean Corpuscular 30.8 Hemoglobin Mean Corpuscular 34.6 Hemoglobin Concent Red Cell Distribution 13.2 Width Platelet Count 219 Mean Platelet Volume 9.8 Immature Granulocytes % 3.200 H Neutrophils % 69.3 Lymphocytes % 17.7 Monocytes % 7.5 Eosinophils % 1.5 Basophils % 0.8 Nucleated Red Blood 0.0 Cells % Immature Granulocytes # 0.370 H Neutrophils # 8.0 H Lymphocytes # 2.1 Monocytes # 0.9 Eosinophils # 0.2 Basophils # 0.1 Nucleated Red Blood 0.0 Cells # Sodium Level 138 Potassium Level 3.7 Chloride Level 109 Carbon Dioxide Level 21 Anion Gap 8 Blood Urea Nitrogen 4 L Creatinine 0.35 L Est Glomerular Filtrat > 60 Rate mL/min Glucose Level 88 Calcium Level 8.4 Magnesium Level 1.7 Total Bilirubin 1.0 Direct Bilirubin 0.00 Indirect Bilirubin 1.0 Aspartate Amino 22 Transf (AST/SGOT) Alanine 16 Aminotransferase (ALT/SG PT) Alkaline Phosphatase 68 Total Protein 6.5 Albumin 3.3 Globulin 3.20 Albumin/Globulin Ratio 1.03 Creatine Kinase 56 Creatine Kinase Index 4.1 Creatinine Kinase MB 2.28 (Mass) Troponin I 0.194 *H Test 08/31/18 13:00 Urine Color YELLOW Urine Clarity CLEAR Urine pH 6.0 Urine Specific [place] 1.005 Urine Ketones NEGATIVE Urine Nitrite NEGATIVE Urine Bilirubin NEGATIVE Urine Urobilinogen NEGATIVE Urine Leukocyte Esterase NEGATIVE Urine Hemoglobin NEGATIVE Urine Glucose NEGATIVE Urine Total Protein NEGATIVE Medications Medication Current Medications IV Flush (NS 3 ml) 3 ml PER PROTOCOL IV ; Start 08/30/18 at 23:30 Ferrous Gluconate (Fergon) 325 mg DAILY PO ; Start 08/31/18 at 10:30 Prenat Multivit/ Worth/Iron/Folic Ac () 1 tab DAILY PO Last administere d on 08/31/18at 10:26; Admin Dose 1 TAB; Start 08/31/18 at 09:30 Acetaminophen (Tylenol Tab) 325 mg Q6H PRN PO MILD PAIN(1-3)OR ELEVATED TEMP; Start 08/31/18 at 09:30 KANG GEORGE MD Aug 31, 2018 14:29
[2018-08-31] MEDS: FERROUS GLUCONATE (EC) 325 MG TAB PO SCH (14:56)
--- NOTE | 2018-08-31 15:01 | RADRPT ---
Vent Rate: 83 bpm RR Interval: 720 msec OK Interval: 146 msec QRS Duration: 81 msec QT Interval: 371 msec QTC Interval: 437 msec P-R-T Rawlings: 47 - 76 - 46 degrees Sinus rhythm...normal P axis, V-rate 50- 99 Electronically Signed By: Winston Shafer
--- NOTE | 2018-08-31 15:20 | RADRPT ---
Echocardiogram Report Patient Name: STEPHENIE MONTEROPatient ID: [id number] : 1985 (33y 1m)Study Date: 08/31/2018 1:09:20 PM Gender: FAccession #: [id number] Tech: Ravinder Moulton [facility] Location: [facility] Ref.Physician: KANG GEORGE Height(Cm): BSA: Weight(Kg): Quality: AdequateOrder Physician: KANG GEORGE Account #: Procedures: Echocardiographic Report: Transthoracic echocardiogram with complete 2D, M-Mode, and doppler examination. Indications: Chest Pain. Measurements: 2D/M Mode Doppler Measurement Value Normal Range Measurement Value Normal Range LVIDd 2D 4.7 [ 3.8 - 5.2 ] cm AV Peak Kwaku 1.4 [ 100.0 - 170.0 ] cm/se c LVIDs 2D 2.9 [ 2.2 - 3.5 ] cm AV Peak PG 8.0 [ 2.0 - 9.0 ] mmHg LVPWd 2D 1.0 [ 0.6 - 0.9 ] cm LVOT Peak Kwaku 1.1 [ 70.0 - 110.0 ] cm/sec IVSd 2D 0.6 [ 0.6 - 0.9 ] cm LVOT Peak PG 5.0 [ 2.0 - 6.0 ] mmHg AoR Diam 2D 2.4 [ 2.3 - 3.1 ] cm MV E Peak Kwaku 0.8 [ 60.0 - 130.0 ] cm/sec EDV 2D 104.0 [ 46.0 - 106.0 ] ml MV A Peak Kwaku 0.4 [ 100.0 - 120.0 ] cm/se c ESV 2D 32.8 [ 14.0 - 42.0 ] ml MV E/A 1.9 [ 0.8 - 1.5 ] ratio EF 2D 68.5 [ 54.0 - 74.0 ] percent MV PHT 64.0 [ 20.0 - 100.0 ] msec LA Dimen 2D 3.0 [ 2.7 - 3.8 ] cm MV Decel Time 218 [ 104 - 258 ] msec MV Decel Cherry 4 Lat E` Kwaku 0.2 [ 10.0 - 15.0 ] cm/sec Lateral E/E` 5.3 [ 1.0 - 2.0 ] ratio Med E` Kwaku 0.1 cm/sec MV E/A 1.9 [ 0.8 - 1.5 ] ratio MVA PHT 3.4 [ 2.0 - 4.0 ] cm2 Findings: Left Ventricle: Normal left ventricular systolic function. Normal left ventricular cavity size. Normal left ventricular wall thickness. Ejection fraction is visually estimated at 55-60 %. Right Ventricle: Normal right ventricular size. Normal right ventricular systolic function. Left Atrium: The left atrium is normal in size. Right Atrium: The right atrium is normal in size. Atrial Septum: Normal atrial septum. Ventricular septum: Normal/intact ventricular septum. Mitral Valve: Normal appearance of the mitral valve. No mitral valve regurgitation is seen. Aortic Valve: Normal appearance of the aortic valve. No aortic regurgitation. Tricuspid Valve: Normal appearance of the tricuspid valve. No evidence of tricuspid regurgitation. Pulmonic Valve: Normal pulmonic valve appearance. No evidence of pulmonic regurgitation. Pericardium: Normal pericardium with no significant pericardial effusion. Aorta: Normal aortic root. IVC: Normal size and normal respiratory collapse consistent with normal right atrial pressure. Conclusions: Normal left ventricular systolic function. Normal left ventricular cavity size. Normal left ventricular wall thickness. Ejection fraction is visually estimated at 55-60 %. Normal appearance of the mitral valve. No mitral valve regurgitation is seen. Normal appearance of the tricuspid valve. No evidence of tricuspid regurgitation. Electronically Signed By: Shamir Torres 2018-08-31 15:19:26 PDT
--- NOTE | 2018-08-31 15:56 | CONS ---
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 Full note dictated # [id number] Objective Vitals Vital Signs Date Temp Pulse Resp B/P (MAP) Pulse Ox O2 O2 Flow FiO2 Time Delivery Rate 08/31/18 97.8 80 20 105/62 96 Room Air 15:18 (76) Intake and Output 08/30/18 08/30/18 08/31/18 1515:00 23:00 07:00 IntakeIntake Total 600 ml BalanceBalance 600 ml Results/Medications Result Diagram: 08/31/18 0655 08/31/18 0655 Results 24 hrs Laboratory Tests Test 08/30/18 19:15 08/30/18 21:37 08/31/18 06:55 08/31/18 10:00 Bedside Glucose 103 Thyroid Stimulating 1.280 Hormone (TSH) Free Thyroxine Index 2.58 Thyroxine (T4) 13.6 H Triiodothyronine (T3) 19.0 L Uptake White Blood Count 11.6 H Red Blood Count 3.44 L Hemoglobin 10.6 L Hematocrit 30.6 L Mean Corpuscular Volume 89.0 Mean Corpuscular 30.8 Hemoglobin Mean Corpuscular 34.6 Hemoglobin Concent Red Cell Distribution 13.2 Width Platelet Count 219 Mean Platelet Volume 9.8 Immature Granulocytes % 3.200 H Neutrophils % 69.3 Lymphocytes % 17.7 Monocytes % 7.5 Eosinophils % 1.5 Basophils % 0.8 Nucleated Red Blood 0.0 Cells % Immature Granulocytes # 0.370 H Neutrophils # 8.0 H Lymphocytes # 2.1 Monocytes # 0.9 Eosinophils # 0.2 Basophils # 0.1 Nucleated Red Blood 0.0 Cells # Sodium Level 138 Potassium Level 3.7 Chloride Level 109 Carbon Dioxide Level 21 Anion Gap 8 Blood Urea Nitrogen 4 L Creatinine 0.35 L Est Glomerular Filtrat > 60 Rate mL/min Glucose Level 88 Calcium Level 8.4 Magnesium Level 1.7 Total Bilirubin 1.0 Direct Bilirubin 0.00 Indirect Bilirubin 1.0 Aspartate Amino 22 Transf (AST/SGOT) Alanine 16 Aminotransferase (ALT/SG PT) Alkaline Phosphatase 68 Total Protein 6.5 Albumin 3.3 Globulin 3.20 Albumin/Globulin Ratio 1.03 Creatine Kinase 56 Creatine Kinase Index 4.1 Creatinine Kinase MB 2.28 (Mass) Troponin I 0.194 *H Test 08/31/18 13:00 Urine Color YELLOW Urine Clarity CLEAR Urine pH 6.0 Urine Specific [place] 1.005 Urine Ketones NEGATIVE Urine Nitrite NEGATIVE Urine Bilirubin NEGATIVE Urine Urobilinogen NEGATIVE Urine Leukocyte Esterase NEGATIVE Urine Hemoglobin NEGATIVE Urine Glucose NEGATIVE Urine Total Protein NEGATIVE Home Meds Active Scripts Neomycin/Polymyxin/Hydrocort* (Cortisporin* Otic) 10 Ml Susp, 4 DROP RIGHT EAR QID, #1 EA Prov:KRISSY HYDE PA-C 06/08/18 Acetaminophen* (Tylenol*) 325 Mg Tablet, 2 TAB PO Q8 PRN for PAIN AND OR ELEVATED TEMP, #20 TAB Prov:MORENA DUNBAR MD 05/24/18 Amoxicillin* (Amoxicillin*) 500 Mg Cap, 500 MG PO TID for 7 Days, CAP Prov:MORENA DUNBAR MD 05/24/18 Neomycin/Polymyxin/Hydrocort* (Cortisporin* Otic) 10 Ml Susp, 4 DROP LEFT EAR QID for 7 Days, EA Prov:MORENA DUNBAR MD 05/24/18 Ciprofloxacin Hcl/HC (Cipro HC Otic Suspension) 10 Ml Drops.susp, 4 DROP OTIC BID for outter ear infection for 7 Days, #1 BOTTLE Prov:SARAH GERMAN DO 05/03/18 Acetaminophen* (Acetaminophen*) 500 MG Extra Strength Tablet, 500 MG PO Q4H PRN for PAIN AND OR ELEVATED TEMP, #30 TAB Prov:SARAH GERMAN DO 05/03/18 Ciprofloxacin Hcl* (Ciprofloxacin Hcl*) 500 Mg Tablet, 500 MG PO BID, #10 TAB Prov:NOEL GALLEGOS DO 02/20/17 Nitrofurantoin Monohyd Macrocr* (Macrobid*) 100 Mg Capsr, 100 MG PO BID for 3 Days, CAP Prov:NOEL GALLEGOS DO 02/20/17 Phenazopyridine Hcl* (Phenazopyridine Hcl*) 100 Mg Tablet, 100 MG PO TID, #8 TAB Prov:NOEL GALLEGOS DO 02/20/17 Naproxen* (Naproxen*) 500 Mg Tablet, 500 MG PO BID PRN for PAIN for 20 Days, TAB Prov:NOEL GALLEGOS DO 02/20/17 Reported Medications Nifedipine* (Procardia*) 20 Mg Cap, 20 MG PO Q6, CAP 02/03/14 Ferrous Gluconate (Iron) 1 Tab Tablet, 1 TAB PO DAILY 01/22/14 Pnv Cmb#21/Iron/Folic Acid ( Complete Caplet) 1 Tab Tablet, 1 TAB PO DAILY 09/18/13 Medications Current Medications IV Flush (NS 3 ml) 3 ml PER PROTOCOL IV ; Start 08/30/18 at 23:30 Ferrous Gluconate (Fergon) 325 mg DAILY PO Last administered on 08/31/18at 14:56; Admin Dose 325 MG; Start 08/31/18 at 10:30 Prenat Multivit/ [place]/Iron/Folic Ac () 1 tab DAILY PO Last administered on 08/31/18at 10:26; Admin Dose 1 TAB; Start 08/31/18 at 09:30 Acetaminophen (Tylenol Tab) 325 mg Q6H PRN PO MILD PAIN(1-3)OR ELEVATED TEMP; Start 08/31/18 at 09:30 AMANDO AIKEN MD Aug 31, 2018 15:55
--- NOTE | 2018-08-31 16:37 | DS ---
Date/Time of Note Date/Time of Note DATE: 08/31/18 TIME: 16:30 Discharge Summary Admission/Discharge Info Admit Date/Time Aug 30, 2018 at 23:55 Discharge Date/Time Patient Condition: Fair Consults Dr Torres/ [place] Procedures Venous Bilateral Lower Ext: no dvt. Echocardiogram Report Measurements: 2D/M Mode Doppler Measurement Value Normal Range Measurement Value Normal Range LVIDd 2D 4.7 [ 3.8 - 5.2 ] cm AV Peak [place] 1.4 [ 100.0 - 170.0 ] cm/sec LVIDs 2D 2.9 [ 2.2 - 3.5 ] cm AV Peak PG 8.0 [ 2.0 - 9.0 ] mmHg LVPWd 2D 1.0 [ 0.6 - 0.9 ] cm LVOT Peak [place] 1.1 [ 70.0 - 110.0 ] cm/sec IVSd 2D 0.6 [ 0.6 - 0.9 ] cm LVOT Peak PG 5.0 [ 2.0 - 6.0 ] mmHg AoR Diam 2D 2.4 [ 2.3 - 3.1 ] cm MV E Peak [place] 0.8 [ 60.0 - 130.0 ] cm/sec EDV 2D 104.0 [ 46.0 - 106.0 ] ml MV A Peak [place] 0.4 [ 100.0 - 120.0 ] cm/sec ESV 2D 32.8 [ 14.0 - 42.0 ] ml MV E/A 1.9 [ 0.8 - 1.5 ] ratio EF 2D 68.5 [ 54.0 - 74.0 ] percent MV PHT 64.0 [ 20.0 - 100.0 ] msec LA Dimen 2D 3.0 [ 2.7 - 3.8 ] cm MV Decel Time 218 [ 104 - 258 ] msec MV Decel [place] 4 Lat E` Kwaku 0.2 [ 10.0 - 15.0 ] cm/sec Lateral E/E` 5.3 [ 1.0 - 2.0 ] ratio Med E` Kw[place] 0.1 cm/sec MV E/A 1.9 [ 0.8 - 1.5 ] ratio MVA PHT 3.4 [ 2.0 - 4.0 ] cm2 Findings: Left Ventricle: Normal left ventricular systolic function. Normal left ventricular cavity size. Normal left ventricular wall thickness. Ejection fraction is visually estimated at 55-60 %. Right Ventricle: Normal right ventricular size. Normal right ventricular systolic function. Left Atrium: The left atrium is normal in size. Right Atrium: The right atrium is normal in size. Atrial Septum: Normal atrial septum. Ventricular septum: Normal/intact ventricular septum. Mitral Valve: Normal appearance of the mitral valve. No mitral valve regurgitation is seen. Aortic Valve: Normal appearance of the aortic valve. No aortic regurgitation. Tricuspid Valve: Normal appearance of the tricuspid valve. No evidence of tricuspid regurgitation. Pulmonic Valve: Normal pulmonic valve appearance. No evidence of pulmonic regurgitation. Pericardium: Normal pericardium with no significant pericardial effusion. Aorta: Normal aortic root. IVC: Normal size and normal respiratory collapse consistent with normal right atrial pressure. Conclusions: Normal left ventricular systolic function. Normal left ventricular cavity size. Normal left ventricular wall thickness. Ejection fraction is visually estimated at 55-60 %. Normal appearance of the mitral valve. No mitral valve regurgitation is seen. Normal appearance of the tricuspid valve. No evidence of tricuspid regurgitation. Electronically Signed By: Shamir Torres 2018-08-31 15:19:26 PDT Hx of Present Illness 33yr F admitted w chest pain. 31weeks . Occured at Clinic yesterday. Pressure chest & back. no n/v/diaphoresis. Hands felt cold. No recent travel. No pleurisy, or dyspnea. Hospital Course Hospitalist Coverage/ Hospital Course Assessment and plan 1. Chest pain rule out ACS/ VTE. Consulted cardiology, OB. Recommend, transfer to Tertiary Care. 2. Abnormal troponin, reviewed echo. May need Cath, vs CTA. 3. 31-32 weeks, stable, observe 4. Anemia 5. Subclinical hypothyroidism 6. Exertional dyspnea 7. Gestational diabetes? 8. H/o section Subjective: Pressure-like chest discomfort yesterday with minimal exertion. Patient left the house to go to her clinic. No pleuritic pain. No recent travel ill contacts calf pain fever. She may have been diaphoretic during the pain. [place] a cold sensation in both of her hands. Pain lasted maybe 3 to 4 hours until she was in the ER and received a certain medication. No previous similar discomfort. I updated the patient and her significant other regarding the likelihood of requiring other testing such as a CAT scan. There they are aware of the patient's symptoms/ abnormal labs that requires further testing. -Cardiac risk factors: None ADDENDUM -will transfer to higher level of care for High risk . Need cardiology, may need cath. O: Vss sr/ st PE No pallor JVD Regular no mrg Clear no tachypnea Bs dimin nt nd gravid No edema/[place] Home Meds Active Scripts Neomycin/Polymyxin/Hydrocort* (Cortisporin* Otic) 10 Ml Susp, 4 DROP RIGHT EAR QID, #1 EA Prov:KRISSY HYDE PA-C 06/08/18 Acetaminophen* (Tylenol*) 325 Mg Tablet, 2 TAB PO Q8 PRN for PAIN AND OR ELEVATED TEMP, #20 TAB Prov:MORENA DUNBAR MD 05/24/18 Amoxicillin* (Amoxicillin*) 500 Mg Cap, 500 MG PO TID for 7 Days, CAP Prov:MORENA DUNBAR MD 05/24/18 Neomycin/Polymyxin/Hydrocort* (Cortisporin* Otic) 10 Ml Susp, 4 DROP LEFT EAR QID for 7 Days, EA Prov:MORENA DUNBAR MD 05/24/18 Ciprofloxacin Hcl/HC (Cipro HC Otic Suspension) 10 Ml Drops.susp, 4 DROP OTIC BID for outter ear infection for 7 Days, #1 BOTTLE Prov:SARAH GERMAN DO 05/03/18 Acetaminophen* (Acetaminophen*) 500 MG Extra Strength Tablet, 500 MG PO Q4H PRN for PAIN AND OR ELEVATED TEMP, #30 TAB Prov:SARAH GERMAN DO 05/03/18 Ciprofloxacin Hcl* (Ciprofloxacin Hcl*) 500 Mg Tablet, 500 MG PO BID, #10 TAB Prov:NOEL GALLEGOS DO 02/20/17 Nitrofurantoin Monohyd Macrocr* (Macrobid*) 100 Mg Capsr, 100 MG PO BID for 3 Days, CAP Prov:NOEL GALLEGOS DO 02/20/17 Phenazopyridine Hcl* (Phenazopyridine Hcl*) 100 Mg Tablet, 100 MG PO TID, #8 TAB Prov:NOEL GALLEGOS DO 02/20/17 Naproxen* (Naproxen*) 500 Mg Tablet, 500 MG PO BID PRN for PAIN for 20 Days, TAB Prov:NOEL GALLEGOS DO 02/20/17 Reported Medications Nifedipine* (Procardia*) 20 Mg Cap, 20 MG PO Q6, CAP 02/03/14 Ferrous Gluconate (Iron) 1 Tab Tablet, 1 TAB PO DAILY 01/22/14 Pnv Cmb#21/Iron/Folic Acid ( Complete Caplet) 1 Tab Tablet, 1 TAB PO DAILY 09/18/13 Primary Care Provider Care Physician No Primary Time spent on discharge: > 30 minutes Pending Labs Laboratory Tests Test 08/30/18 19:15 08/30/18 21:37 08/31/18 06:55 08/31/18 10:00 Bedside 103 Glucose mg/dL (70-220) Thyroid 1.280 Stimulating MIU/L (0.465-4 Hormone (TSH) .680) Free Thyroxine 2.58 Index ug/ml (0.65-3. 89) Thyroxine (T4) 13.6 ug/dl (5.5-11. 0) Triiodothyronin 19.0 e (T3) Uptake % (23.5-40.5) White Blood 11.6 Count 10^3/ul (4.8-1 0.8) Red Blood 3.44 Count 10^6/ul (4.20- 5.40) Hemoglobin 10.6 g/dl (12.0-16. 0) Hematocrit 30.6 % (37.0-47.0) Mean 89.0 Corpuscular fl (82.0-101.0 Volume ) Mean 30.8 Corpuscular pg (29.0-33.0) Hemoglobin Mean 34.6 Corpuscular g/dl (32.0-37. Hemoglobin Conc 0) ent Red Cell 13.2 Distribution % (11.5-14.5) Width Platelet Count 219 10^3/UL (140-4 15) Mean Platelet 9.8 Volume fl (7.4-10.4) Immature 3.200 Granulocytes % % (0.001-0.429 ) Neutrophils % 69.3 % (39.0-77.0) Lymphocytes % 17.7 % (15.0-51.0) Monocytes % 7.5 % (0.0-11.0) Eosinophils % 1.5 % (0.0-7.0) Basophils % 0.8 % (0.0-2.0) Nucleated Red 0.0 Blood Cells % /100WBC (0.0-0 .0) Immature 0.370 Granulocytes # 10^3/ul (0.0-0 .031) Neutrophils # 8.0 10^3/ul (1.6-7 .5) Lymphocytes # 2.1 10^3/ul (0.8-2 .9) Monocytes # 0.9 10^3/ul (0.3-0 .9) Eosinophils # 0.2 10^3/ul (0.0-0 .5) Basophils # 0.1 10^3/ul (0.0-0 .1) Nucleated Red 0.0 Blood Cells # 10^3/ul (0.0-0 .0) Sodium Level 138 mmol/L (135-14 4) Potassium 3.7 Level mmol/L (3.5-5. 1) Chloride Level 109 mmol/L (97-110 ) Carbon Dioxide 21 Level mmol/L (21-31) Anion Gap 8 (5-13) Blood Urea 4 mg/dl (7-20) Nitrogen Creatinine 0.35 mg/dl (0.44-1. 00) Est Glomerular > 60 Filtrat mL/min (>60) Rate mL/min Glucose Level 88 mg/dl (70-220) Calcium Level 8.4 mg/dl (8.4-10. 2) Magnesium 1.7 Level mg/dl (1.7-2.5 ) Total 1.0 Bilirubin mg/dl (0.2-1.3 ) Direct 0.00 Bilirubin mg/dl (0.00-0. 20) Indirect 1.0 Bilirubin mg/dl (0-1.1) Aspartate Amino 22 Transf (AST/SGO IU/L (15-46) T) Alanine 16 Aminotransferas IU/L (13-69) e (ALT/SGPT) Alkaline 68 Phosphatase IU/L (42-121) Total Protein 6.5 g/dl (6.1-8.1) Albumin 3.3 g/dl (3.3-4.9) Globulin 3.20 g/dl (1.3-3.2) Albumin/Globuli 1.03 n Ratio Creatine 56 Kinase IU/L (23-200) Creatine Kinase 4.1 Index Creatinine 2.28 Kinase MB ng/ml (0.0-2.4 (Mass) ) Troponin I 0.194 ng/ml (0.000-0 .120) Test 08/31/18 13:00 08/31/18 16:01 Urine Color YELLOW (YELLOW) Urine Clarity CLEAR (CLEAR) Urine pH 6.0 (5.0-9.0) Urine Specific 1.005 (1.003-1. [place] 030) Urine Ketones NEGATIVE mg/dL (NEGATIVE ) Urine Nitrite NEGATIVE mg/dL (NEGATIVE ) Urine NEGATIVE Bilirubin mg/dL (NEGATIVE ) Urine NEGATIVE Urobilinogen mg/dL (NEGATIVE ) Urine Leukocyte NEGATIVE [place]/ul Esterase Urine NEGATIVE Hemoglobin mg/dL (NEGATIVE ) Urine Glucose NEGATIVE mg/dL (NEGATIVE ) Urine Total NEGATIVE Protein mg/dl (NEGATIVE ) Creatine 55 Kinase IU/L (23-200) Creatine Kinase Pending Index Creatinine Pending Kinase MB (Mass) Troponin I Pending KANG GEORGE MD Aug 31, 2018 16:37
--- NOTE | 2018-08-31 16:40 | PDOCDIS ---
Discharge Instructions CONDITION [id number] Patient Condition: [id number] Fair HOME CARE INSTRUCTIONS: [id number] Diet Instructions: [id number] Regular ACTIVITY: [id number] Activity Restrictions: [id number] Slowly Increase Activity FOLLOW UP/APPOINTMENTS Follow-up Plan appt primary & OB post discharge. KANG GEORGE MD Aug 31, 2018 16:40
--- NOTE | 2018-08-31 22:15 | PN ---
Triage Information Date/Time Aug 30, 2018 at 23:55 Reason for visit: chest tightness and short of breath dizziness and palpitation Weeks of Gestation 31weeks /Para Diabetes: gestational Diabetes management: diet controlled Hypertention: none Objective Vital Signs Date Temp Pulse Resp B/P (MAP) Pulse Ox O2 O2 Flow FiO2 Time Delivery Rate 08/31/18 98.1 90 19 106/66 97 19:47 (79) 08/31/18 Room Air 15:18 Intake and Output 08/30/18 08/30/18 08/31/18 1515:00 23:00 07:00 IntakeIntake Total 600 ml BalanceBalance 600 ml Heart Rate: 150's Heart Rate Comments CAT I Results/Medications Result Diagram: 08/31/18 0655 08/31/18 0655 Results 24 hrs Laboratory Tests Test 08/31/18 06:55 08/31/18 10:00 08/31/18 13:00 08/31/18 16:01 White Blood Count 11.6 H Red Blood Count 3.44 L Hemoglobin 10.6 L Hematocrit 30.6 L Mean Corpuscular Volume 89.0 Mean Corpuscular 30.8 Hemoglobin Mean Corpuscular 34.6 Hemoglobin Concent Red Cell Distribution 13.2 Width Platelet Count 219 Mean Platelet Volume 9.8 Immature Granulocytes % 3.200 H Neutrophils % 69.3 Lymphocytes % 17.7 Monocytes % 7.5 Eosinophils % 1.5 Basophils % 0.8 Nucleated Red Blood 0.0 Cells % Immature Granulocytes # 0.370 H Neutrophils # 8.0 H Lymphocytes # 2.1 Monocytes # 0.9 Eosinophils # 0.2 Basophils # 0.1 Nucleated Red Blood 0.0 Cells # Sodium Level 138 Potassium Level 3.7 Chloride Level 109 Carbon Dioxide Level 21 Anion Gap 8 Blood Urea Nitrogen 4 L Creatinine 0.35 L Est Glomerular Filtrat > 60 Rate mL/min Glucose Level 88 Calcium Level 8.4 Magnesium Level 1.7 Total Bilirubin 1.0 Direct Bilirubin 0.00 Indirect Bilirubin 1.0 Aspartate Amino 22 Transf (AST/SGOT) Alanine 16 Aminotransferase (ALT/SG PT) Alkaline Phosphatase 68 Total Protein 6.5 Albumin 3.3 Globulin 3.20 Albumin/Globulin Ratio 1.03 Creatine Kinase 56 55 Creatine Kinase Index 4.1 3.1 Creatinine Kinase MB 2.28 1.71 (Mass) Troponin I 0.194 *H 0.101 Urine Color YELLOW Urine Clarity CLEAR Urine pH 6.0 Urine Specific [place] 1.005 Urine Ketones NEGATIVE Urine Nitrite NEGATIVE Urine Bilirubin NEGATIVE Urine Urobilinogen NEGATIVE Urine Leukocyte Esterase NEGATIVE Urine Hemoglobin NEGATIVE Urine Glucose NEGATIVE Urine Total Protein NEGATIVE Prothrombin Time 13.7 Prothrombin Time Ratio 1.1 INR International 1.04 Normalized Ratio Medications Current Medications IV Flush (NS 3 ml) 3 ml PER PROTOCOL IV ; Start 08/30/18 at 23:30 Ferrous Gluconate (Fergon) 325 mg DAILY PO Last administered on 08/31/18at 14:56; Admin Dose 325 MG; Start 08/31/18 at 10:30 Prenat Multivit/ [place]/Iron/Folic Ac () 1 tab DAILY PO Last administered on 08/31/18at 10:26; Admin Dose 1 TAB; Start 08/31/18 at 09:30 Acetaminophen (Tylenol Tab) 325 mg Q6H PRN PO MILD PAIN(1-3)OR ELEVATED TEMP; Start 08/31/18 at 09:30 Imaging Results Doppler blateral LE neg Disposition: Admit Assessment/Plan A IUP 31weeks sinus tacycardia chest pain P hospitalist called for consultation( Dr olivia) will come soon to evaluate ZAIDA GARCIA MD Aug 31, 2018 22:15
--- NOTE | 2018-08-31 22:24 | QN ---
Documentation Comment no c/o SOB or chest pain or palpitation feels much better O2sat 97-99 HR 90's echocardiogram normal Troponin was high , but came down this PM FM good NST reactive A IUP 31w + tachycardia chest pain resolved P f/u with ZAIDA RAMSEY MD Aug 31, 2018 22:24
[2018-08-31] MEDS ORDERED: LACTATED RINGER'S 1,000 ML IV PRN (22:38)
[2018-09-01] VITALS (7 sets, daily range): BP systolic 95–111; BP diastolic 52–61; PULSE 50–105; RESP 18–20
--- NOTE | 2018-09-01 06:19 | CONS ---
DATE OF ADMISSION: 08/30/2018 DATE OF CONSULTATION: 08/31/2018 TYPE OF CONSULTATION: Pulmonary. REFERRING PHYSICIAN: Deshaun Arcos MD REASON FOR EVALUATION: Precordial chest pain. HISTORY OF PRESENT ILLNESS: Ms. Andrews is a 33-year-old woman with history of gestational diabetes who comes to the hospital now after evaluation of precordial chest pain. She was in her accounts receivable manager 's office when she felt precordial chest pain which lasted about 2 hours. The patient did not report any prior episodes of such an event. She does not report any hypertension, any other chest issue. This is her second child. She had no problems with first child, she had some cervical problems for w hich she will have to have a . Currently, the patient is hemodynamically stable. She is un able to ambulate and she is chest pain free; however, her initial set of troponin came back positive at 0.194 with normal CK-MB. The etiology of her troponin elevation is still unclear, but and there is increased risk of spontaneous dissection of the coronary arteries as well as pulmonary embol us. The patient is not currently being heparinized. She is chest pain free. Her initial troponin w as negative at 0.039 and now with elevation of 0.194. As such, it would be my recommendation for pat ient to be transferred to a facility where there is a possibility for left heart catheterization if n ecessary. Fortunately the patient is chest pain-free right now, and I think that this could be done expeditiously. For now, I will not initiate heparin. She is chest pain free. We are going to wait for another set of troponin. If the next troponin is positive, then heparinization is likely to be advised in a setting of precord ial chest pain. I discussed the case with Dr. Arcos; he agrees with transferring the patient t o a PCI capable center as our laboratory manager is not functional at this particular point. Hopefully, it cici l be done shortly. PAST MEDICAL HISTORY: History of depression, diabetes, history of unremarkable in the past except for cervical complications requiring and . ALLERGIES: No known allergies. SOCIAL HISTORY: The patient does not smoke, does not drink, does not use drugs. FAMILY HISTORY: Negative for sudden cardiac . There is history of diabetes in the family. MEDICATIONS: Include iron supplements, multivitamins, Tylenol. REVIEW OF SYSTEMS: CONSTITUTIONAL: No fevers, no chills, no recent weight change except for appropriate weight gain wit h . CARDIAC: Chest pain reported now, but chest pain described. RESPIRATORY: No shortness of breath. GASTROINTESTINAL: No nausea, vomiting. GENITOURINARY: No dysuria or hematuria. NEUROLOGIC: No focal numbness. HEMATOLOGIC: History of any previous . PSYCHIATRIC: Possible history of anxiety. PHYSICAL EXAMINATION: VITAL SIGNS: Temperature 97.8, heart rate 80, blood pressure is 105/62. GENERAL: She is well-nourished woman in no acute distress, alert and oriented x3, aware of her condi tion. HEAD: Normocephalic, atraumatic. Extraocular muscles intact. NECK: Supple. JVD 6-7 cm. No lymphadenopathy, no thyromegaly. HEART: There is a holosystolic murmur. PMI is minimally displaced. There . LUNGS: Clear to auscultation. ABDOMEN: Distended, bowel sounds are present. Suspect . intact. Gravid abdomen. EXTREMITIES: Show . LABORATORY DATA: Sodium 130, potassium 3.7, BUN 4, creatinine 0.3. Her troponin on admission was 0. 039, now is 0.194 with a normal CK-MB at 2.28, was borderline, CK-MB 3.28 and normal creatinine . ASSESSMENT AND PLAN: 1. Elevated troponins. The patient has elevated troponin in the setting of her episode of precordia l chest pain. I consider her to be elevated risk because of . She is not unlikely for the patient having obstructive coronary artery disease, but she is for increased risk. There is suspicio n for a coronary artery dissection. As such, I recommend the patient to be urgently transferred to [facility] for monitoring. We will not initiate heparin now as patient is chest pain-free and await for another set of troponins to be draw. I discussed this with Dr. Arcos at length. He r 2D echo appears to be normal at this particular point. 2. Gestational diabetes. Defer to primary team for evaluation. 3. A 33-year-old with recent appears to be normal, will allow Dr. Arcos to inform pr imary accounts receivable manager about the findings so far. 4. Shortness of breath, now resolved. Continue to monitor. I would like to thank Dr. Arcos for referring this patient for my evaluation. Dictated By: AMANDO AIKEN MD ML/NTS Conf#: [id number] DID#: [id number] CC: REGINALDO CABRERA MD;*EndCC*
[2018-09-01] MEDS: PRENATAL VITAMIN PO SCH (09:11)
[2018-09-01] MEDS: FERROUS GLUCONATE (EC) 325 MG TAB PO SCH (09:11)
--- NOTE | 2018-09-01 10:32 | CONS ---
Consult Date/Type/Reason Admit Date/Time Aug 30, 2018 at 23:55 Initial Consult Date Date/Time of Note DATE: 09/01/18 TIME: 10:26 Subjective No acute change - pt comfortable - no CP now. I had a very long discussion with patient and her . 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 She is CP free now - I explained risk and benefit of LHC (including radiation risk to the fetus) vs watchful waiting - the patient iunderstood the risks - does not want LHC which is reasonable. I spoke with Dr. Bowden - she is aware of plan of care - ok with baby ASA now. ROS: No fever, no chills, no nausea, no vomiting, no diarrhea/constipation No recent weight changes No chest pain, no PND, no orthopnea No dizziness, blurred vision No thirst, no heat or cold intolerance Objective Vitals Vital Signs Date Temp Pulse Resp B/P (MAP) Pulse Ox O2 O2 Flow FiO2 Time Delivery Rate 09/01/18 98.1 50 18 97/52 (67) 97 07:12 08/31/18 Room Air 15:18 Intake and Output 08/31/18 08/31/18 09/01/18 1515:00 23:00 07:00 IntakeIntake Total 250 ml 3000 ml 400 ml OutputOutput Total 500 ml 500 ml BalanceBalance -250 ml 2500 ml 400 ml Exam General: WN/WD/NAD, AOx 3 HEENT: Unicetric/atraumatic/EOMI (follow commands) NECK: JVD elevated, no thyromegaly Lymph: no lymphadenopathy HEART: regular with no S3, II/ systolic murmur at apex LUNGS: Coarse sounds ABD: soft, NT, ND, +BS - GRAVID : Intact Neuro: non focal SKIN: chronic changes EXT: trace edema Results/Medications Result Diagram: 09/01/1833 09/01/1833 Results 24 hrs Laboratory Tests Test 08/31/18 13:00 08/31/18 16:01 09/01/18 06:33 Urine Color YELLOW Urine Clarity CLEAR Urine pH 6.0 Urine Specific [place] 1.005 Urine Ketones NEGATIVE Urine Nitrite NEGATIVE Urine Bilirubin NEGATIVE Urine Urobilinogen NEGATIVE Urine Leukocyte Esterase NEGATIVE Urine Hemoglobin NEGATIVE Urine Glucose NEGATIVE Urine Total Protein NEGATIVE Prothrombin Time 13.7 Prothrombin Time Ratio 1.1 INR International Normalized Ratio 1.04 Creatine Kinase 55 Creatine Kinase Index 3.1 Creatinine Kinase MB (Mass) 1.71 Troponin I 0.101 0.121 H White Blood Count 9.6 Red Blood Count 3.66 L Hemoglobin 11.0 L Hematocrit 32.0 L Mean Corpuscular Volume 87.4 Mean Corpuscular Hemoglobin 30.1 Mean Corpuscular Hemoglobin Concent 34.4 Red Cell Distribution Width 13.1 Platelet Count 226 Mean Platelet Volume 9.7 Immature Granulocytes % 4.700 H Neutrophils % 61.9 Lymphocytes % 21.9 Monocytes % 8.4 Eosinophils % 2.3 Basophils % 0.8 Nucleated Red Blood Cells % 0.0 Immature Granulocytes # 0.450 H Neutrophils # 6.0 Lymphocytes # 2.1 Monocytes # 0.8 Eosinophils # 0.2 Basophils # 0.1 Nucleated Red Blood Cells # 0.0 Sodium Level 139 Potassium Level 3.7 Chloride Level 109 Carbon Dioxide Level 20 L Anion Gap 10 Blood Urea Nitrogen 4 L Creatinine 0.39 L Est Glomerular Filtrat Rate mL/min > 60 Glucose Level 93 Calcium Level 8.5 Phosphorus Level 4.0 Magnesium Level 1.7 Total Bilirubin 0.8 Direct Bilirubin 0.00 Indirect Bilirubin 0.8 Aspartate Amino Transf (AST/SGOT) 18 Alanine Aminotransferase (ALT/SGPT) 13 Alkaline Phosphatase 63 Total Protein 6.3 Albumin 3.3 Globulin 3.00 Albumin/Globulin Ratio 1.10 Free Thyroxine 0.80 Total Triiodothyronine 1.70 H Home Meds Active Scripts Neomycin/Polymyxin/Hydrocort* (Cortisporin* Otic) 10 Ml Susp, 4 DROP RIGHT EAR QID, #1 EA Prov:KRISSY HYDE PA-C 06/08/18 Acetaminophen* (Tylenol*) 325 Mg Tablet, 2 TAB PO Q8 PRN for PAIN AND OR ELEVATED TEMP, #20 TAB Prov:MORENA DUNBAR MD 05/24/18 Neomycin/Polymyxin/Hydrocort* (Cortisporin* Otic) 10 Ml Susp, 4 DROP LEFT EAR QID for 7 Days, EA Prov:MORENA DUNBAR MD 05/24/18 Ciprofloxacin Hcl/HC (Cipro HC Otic Suspension) 10 Ml Drops.susp, 4 DROP OTIC BID for outter ear infection for 7 Days, #1 BOTTLE Prov:SARAH GERMAN DO 05/03/18 Reported Medications Nifedipine* (Procardia*) 20 Mg Cap, 20 MG PO Q6, CAP 02/03/14 Ferrous Gluconate (Iron) 1 Tab Tablet, 1 TAB PO DAILY 01/22/14 Pnv Cmb#21/Iron/Folic Acid ( Complete Caplet) 1 Tab Tablet, 1 TAB PO DAILY 09/18/13 Discontinued Scripts Amoxicillin* (Amoxicillin*) 500 Mg Cap, 500 MG PO TID for 7 Days, CAP Prov:MORENA DUNBAR MD 05/24/18 Acetaminophen* (Acetaminophen*) 500 MG Extra Strength Tablet, 500 MG PO Q4H PRN for PAIN AND OR ELEVATED TEMP, #30 TAB Prov:SARAH GERMAN DO 05/03/18 Ciprofloxacin Hcl* (Ciprofloxacin Hcl*) 500 Mg Tablet, 500 MG PO BID, #10 TAB Prov:NOEL GALLEGOS DO 02/20/17 Nitrofurantoin Monohyd Macrocr* (Macrobid*) 100 Mg Capsr, 100 MG PO BID for 3 Days, CAP Prov:NOEL GALLEGOS DO 02/20/17 Phenazopyridine Hcl* (Phenazopyridine Hcl*) 100 Mg Tablet, 100 MG PO TID, #8 TAB Prov:NOEL GALLEGOS DO 02/20/17 Naproxen* (Naproxen*) 500 Mg Tablet, 500 MG PO BID PRN for PAIN for 20 Days, TAB Prov:NOEL GALLEGOS DO 02/20/17 Medications Current Medications IV Flush (NS 3 ml) 3 ml PER PROTOCOL IV ; Start 08/30/18 at 23:30 Ferrous Gluconate (Fergon) 325 mg DAILY PO Last administered on 09/01/18at 09:11; Admin Dose 325 MG; Start 08/31/18 at 10:30 Prenat Multivit/ [place]/Iron/Folic Ac () 1 tab DAILY PO Last administered on 09/01/18at 09:11; Admin Dose 1 TAB; Start 08/31/18 at 09:30 Acetaminophen (Tylenol Tab) 325 mg Q6H PRN PO MILD PAIN(1-3)OR ELEVATED TEMP; Start 08/31/18 at 09:30 Lactated Ringer's 1,000 ml @ 2,000 mls/hr Q30M PRN IV .ANESTHESIA; Start 08/31/18 at 22:38 Assessment/Plan Hospital Course (Demo Recall) 1. Elevated troponins. The patient has elevated troponin in the setting of her episode of precordial chest pain. I consider her to be elevated risk because of . She is not unlikely for the patient having obstructive coronary artery disease, but she is for increased risk. There is suspicion for a coronary artery dissection. As such, I recommend the patient to be urgently transferred to PCI capable center for monitoring. We will not initiate heparin now as patient is chest pain-free and await for another set of troponins to be draw. I discussed this with Dr. Arcos at length. Her 2D echo appears to be normal at this particular point.I had a very long discussion with patient and her . 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 She is CP free now - I explained risk and benefit of LHC (including radiation risk to the fetus) vs watchful waiting - the patient iunderstood the risks - does not want LHC which is reasonable. I spoke with Dr. Bowden - she is aware of plan of care - ok with baby ASA now. 2. Gestational diabetes. Defer to primary team for evaluation. 3. A 33-year-old with recent appears to be normal, will allow Dr. Arcos to inform primary continuous miner operator about the findings so far. 4. Shortness of breath, now resolved. Continue to monitor.RESOLVED. AMANDO AIKEN MD Sep 01, 2018 10:32
--- NOTE | 2018-09-01 13:55 | RADRPT ---
Vent Rate: 87 bpm RR Interval: 688 msec MS Interval: 144 msec QRS Duration: 80 msec QT Interval: 372 msec QTC Interval: 448 msec P-R-T [place]: 50 - 72 - 47 degrees Sinus rhythm...normal P axis, V-rate 50- 99 Electronically Signed By: Winston Shafer
--- NOTE | 2018-09-01 14:27 | PN ---
Date/Time of Note Date/Time of Note DATE: 09/01/18 TIME: 14:26 Assessment/Plan VTE Prophylaxis Risk score (from Nsg)>0 risk: 2 SCD applied (from Nsg): Yes SCD contraindicated: low risk/ambulating Pharmacological prophylaxis: NA/contraindicated Pharm contraindication: low risk/ambulating Lines/Catheters IV Catheter Type (from Nrs): [place] Assessment/Plan Hospital Course Hospitalist Coverage/ Hospital Course Assessment and plan 1. Chest pain rule out ACS/ VTE. Consulted cardiology, OB. Recommend- transfer to Tertiary Care. 2. Abnormal troponin, reviewed echo. 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 May need Cath, vs CTA. 3. 31-32 weeks, stable, observe 4. Anemia 5. Subclinical hypothyroidism 6. Exertional dyspnea 7. Gestational diabetes? 8. H/o section Subjective: 08/31 pressure-like chest discomfort yesterday with minimal exertion. Patient left the house to go to her clinic. No pleuritic pain. No recent travel ill contacts calf pain fever. She may have been diaphoretic during the pain. [place] a cold sensation in both of her hands. Pain lasted maybe 3 to 4 hours until she was in the ER and received a certain medication. No previous similar discomfort. I updated the patient and her significant other regarding the likelihood of requiring other testing such as a CAT scan. There they are aware of the patient's symptoms/ abnormal labs that requires further testing. -Cardiac risk factors: None ADDENDUM -will transfer to higher level of care for High risk . Need cardiology, may need cath. 09/01: No chest pain dyspnea. Worried frustrated. I spoke to her regarding the options, and I recommended she be evaluated at a higher level of care. O: Vss sr/ st PE No pallor JVD Regular no mrg Clear no tachypnea Bs dimin nt nd gravid No edema/Homans Result Diagram: 09/01/18 0633 09/01/18 0633 Results 24hrs Laboratory Tests Test 08/31/18 16:01 09/01/18 06:33 Prothrombin Time 13.7 Prothrombin Time Ratio 1.1 INR International Normalized Ratio 1.04 Creatine Kinase 55 Creatine Kinase Index 3.1 Creatinine Kinase MB (Mass) 1.71 Troponin I 0.101 0.121 H White Blood Count 9.6 Red Blood Count 3.66 L Hemoglobin 11.0 L Hematocrit 32.0 L Mean Corpuscular Volume 87.4 Mean Corpuscular Hemoglobin 30.1 Mean Corpuscular Hemoglobin Concent 34.4 Red Cell Distribution Width 13.1 Platelet Count 226 Mean Platelet Volume 9.7 Immature Granulocytes % 4.700 H Neutrophils % 61.9 Lymphocytes % 21.9 Monocytes % 8.4 Eosinophils % 2.3 Basophils % 0.8 Nucleated Red Blood Cells % 0.0 Immature Granulocytes # 0.450 H Neutrophils # 6.0 Lymphocytes # 2.1 Monocytes # 0.8 Eosinophils # 0.2 Basophils # 0.1 Nucleated Red Blood Cells # 0.0 Sodium Level 139 Potassium Level 3.7 Chloride Level 109 Carbon Dioxide Level 20 L Anion Gap 10 Blood Urea Nitrogen 4 L Creatinine 0.39 L Est Glomerular Filtrat Rate mL/min > 60 Glucose Level 93 Calcium Level 8.5 Phosphorus Level 4.0 Magnesium Level 1.7 Total Bilirubin 0.8 Direct Bilirubin 0.00 Indirect Bilirubin 0.8 Aspartate Amino Transf (AST/SGOT) 18 Alanine Aminotransferase (ALT/SGPT) 13 Alkaline Phosphatase 63 Total Protein 6.3 Albumin 3.3 Globulin 3.00 Albumin/Globulin Ratio 1.10 Free Thyroxine 0.80 Total Triiodothyronine 1.70 H Exam/Review of Systems Exam Vitals Vital Signs Date Temp Pulse Resp B/P (MAP) Pulse Ox O2 O2 Flow FiO2 Time Delivery Rate 09/01/18 98.2 80 18 102/52 96 11:10 (69) 08/31/18 Room Air 15:18 Intake and Output 08/31/18 08/31/18 09/01/18 1515:00 23:00 07:00 IntakeIntake Total 250 ml 3000 ml 400 ml OutputOutput Total 500 ml 500 ml BalanceBalance -250 ml 2500 ml 400 ml Results Results 24hrs Laboratory Tests Test 08/31/18 16:01 09/01/18 06:33 Prothrombin Time 13.7 Prothrombin Time Ratio 1.1 INR International Normalized Ratio 1.04 Creatine Kinase 55 Creatine Kinase Index 3.1 Creatinine Kinase MB (Mass) 1.71 Troponin I 0.101 0.121 H White Blood Count 9.6 Red Blood Count 3.66 L Hemoglobin 11.0 L Hematocrit 32.0 L Mean Corpuscular Volume 87.4 Mean Corpuscular Hemoglobin 30.1 Mean Corpuscular Hemoglobin Concent 34.4 Red Cell Distribution Width 13.1 Platelet Count 226 Mean Platelet Volume 9.7 Immature Granulocytes % 4.700 H Neutrophils % 61.9 Lymphocytes % 21.9 Monocytes % 8.4 Eosinophils % 2.3 Basophils % 0.8 Nucleated Red Blood Cells % 0.0 Immature Granulocytes # 0.450 H Neutrophils # 6.0 Lymphocytes # 2.1 Monocytes # 0.8 Eosinophils # 0.2 Basophils # 0.1 Nucleated Red Blood Cells # 0.0 Sodium Level 139 Potassium Level 3.7 Chloride Level 109 Carbon Dioxide Level 20 L Anion Gap 10 Blood Urea Nitrogen 4 L Creatinine 0.39 L Est Glomerular Filtrat Rate mL/min > 60 Glucose Level 93 Calcium Level 8.5 Phosphorus Level 4.0 Magnesium Level 1.7 Total Bilirubin 0.8 Direct Bilirubin 0.00 Indirect Bilirubin 0.8 Aspartate Amino Transf (AST/SGOT) 18 Alanine Aminotransferase (ALT/SGPT) 13 Alkaline Phosphatase 63 Total Protein 6.3 Albumin 3.3 Globulin 3.00 Albumin/Globulin Ratio 1.10 Free Thyroxine 0.80 Total Triiodothyronine 1.70 H Medications Medication Current Medications IV Flush (NS 3 ml) 3 ml PER PROTOCOL IV ; Start 08/30/18 at 23:30 Ferrous Gluconate (Fergon) 325 mg DAILY PO Last administered on 09/01/18at 09:11; Admin Dose 325 MG; Start 08/31/18 at 10:30 Prenat Multivit/ [place]/Iron/Folic Ac () 1 tab DAILY PO Last administered on 09/01/18 09:11; Admin Dose 1 TAB; Start 08/31/18 at 09:30 Acetaminophen (Tylenol Tab) 325 mg Q6H PRN PO MILD PAIN(1-3)OR ELEVATED TEMP; Start 08/31/18 at 09:30 Aspirin (Halfprin) 81 mg DAILY PO ; Start 09/02/18 at 09:00 KANG GEORGE MD Sep 01, 2018 14:27
[2018-09-01] MEDS ORDERED: DOCUSATE SODIUM 100 MG CAP PO PRN (14:30)
[2018-09-02] VITALS: PULSE 98
[2018-09-02] MEDS ORDERED: DEXTROSE 50% 50 ML SYRINGE IV PRN ×2 (00:30)
[2018-09-02] MEDS ORDERED: GLUCAGON 1 MG INJ IM PRN (00:30)
[2018-09-02] MEDS ORDERED: GLUCOSE GEL 15 GRAM TUBE PO PRN ×2 (00:30)
[2018-09-02] MEDS ORDERED: GLUCOSE GEL 15 GRAM TUBE BUCCAL PRN (00:30)
[2018-09-02] MEDS: BETAMET NA PHOS/AC(6 MG/ML) 2 ML INJ SYG IM SCH (01:55)
[2018-09-02 03:31] VITALS: BP 107/59; PULSE 86; RESP 21
--- NOTE | 2018-09-02 04:02 | CONS ---
DATE OF ADMISSION: 09/01/2018 DATE OF CONSULTATION: 09/01/2018 08/28/2018. I received a call about 11:30 at night tonight from the laborist concrete crusher loader operator, notifying me that the patie nt had been admitted since last night and I had not been notified. On Tuesday, however, I saw the pat concepcion as I was leaving the clinic. There was an emergency ambulance that was going to the same floor as my practice is. I followed them just to make sure there is nothing wrong in the other clinic wher e they were going to. As I entered that clinic, I saw the patient and the patient had some complaint of chest pain and some shortness of breath. O2 sats were at the 98%, 99% and 100% on room air, bloo d pressure normal with a mildly tachycardia and respiratory rate was also normal. At the time, her o nly symptoms were slight chest pain and slight dizziness and after the patient was taken to the [facility], I left and patient was discharged apparently over the weekend but she presented to the hospital again last night. Now, the admitting physician sent her back to the emergency room where the [facility] list saw the patient. Echocardiogram was done which is essentially normal; however, troponin levels were elevated 2 out of 3. There is no evidence of defect in O2 saturation, blood pressures have been normal. Package Worker saw the patient around 5:00 p.m. today. These are all per report and the card iologist was concerned of spontaneous coronary artery dissection as the patient is a young female and in childbearing age, this diagnosis despite being rare, it should be 100% considered; however, at th at time, the full stack engineer deferred any type of treatment and asked for urgent transferred to [facility], bu t the patient has not yet been transferred. She is diabetic with good control of her diabetes. I sp fabian to Dr. Perry, who is the laborist today, and betamethasone is recommended. Also, sliding scale while she is being transferred and also continuous heart tone monitoring and I did mention behzad t the patient should really have been transferred but since she has not yet been transferred, she zena uld be transferred as soon as possible. If not, then the full stack engineer should get involved with the p otential treatment; however, her blood pressures are normal. Other reasons for troponins elevations or acute pulmonary embolism. She has been evaluated for DVTs which have been normal, but if again, s he is not being transferred as soon as possible, then I would consider a spiral CT to assess for the pulmonary embolism in case that her shortness of breath is secondary to that and also, her troponin l evels are elevated. In terms of the renal failure as the cause of the elevated troponin, I do recomm end checking for her creatinine, but the patient, she is a young patient, and as far as I know the ketan burgos as a jd edwards consultant, she has never had any type of medical complications. If you have any question s, please call need for further questions and again, I do recommend very urgent transfer to [facility], so she potentially can be treated for the spontaneous coronary artery dissection. Dictated By: TONA ALVAREZ MD ST/NTS Conf#: [id number] DID#: [id number] CC: REGINALDO CABRERA MD;*EndCC*
[2018-09-02] MEDS: ACCU-CHEK XX SCH ×4 (06:00→20:08)
[2018-09-02 08:13] VITALS: BP 113/69; PULSE 85; RESP 18
[2018-09-02] MEDS: INSULIN ASPART [NOVOLOG] 3 ML PEN SC SCH ×3 (08:17→20:00)
[2018-09-02] MEDS: PRENATAL VITAMIN PO SCH (08:35)
[2018-09-02] MEDS: ASPIRIN (EC) 81 MG TAB PO SCH ×3 (08:36→18:25)
[2018-09-02] MEDS: FERROUS GLUCONATE (EC) 325 MG TAB PO SCH (08:36)
[2018-09-02 11:13] VITALS: BP 105/63; PULSE 73; RESP 19
--- NOTE | 2018-09-02 12:43 | CONS ---
Consult Date/Type/Reason Admit Date/Time Sep 01, 2018 at 07:41 Initial Consult Date Date/Time of Note DATE: 09/02/18 TIME: 12:41 Subjective NO acute events - pt comfortable - CP free now - troponin normalizing - will monitor for now. Plan to re-check troponin tomorrow - nurse at bedside for monitoring. ROS: No fever, no chills, no nausea, no vomiting, no diarrhea/constipation No recent weight changes No chest pain, no PND, no orthopnea No dizziness, blurred vision No thirst, no heat or cold intolerance Objective Vitals Vital Signs Date Temp Pulse Resp B/P (MAP) Pulse Ox O2 O2 Flow FiO2 Time Delivery Rate 09/02/18 97.7 73 19 105/63 97 11:13 (77) 08/31/18 Room Air 15:18 Intake and Output 09/01/18 09/01/18 09/02/18 1515:00 23:00 07:00 IntakeIntake Total 1060 ml 1200 ml 600 ml BalanceBalance 1060 ml 1200 ml 600 ml Exam General: WN/WD/NAD, AOx 3 HEENT: Unicetric/atraumatic/EOMI (follow commands) NECK: JVD elevated, no thyromegaly Lymph: no lymphadenopathy HEART: regular with no S3, II/ systolic murmur at apex LUNGS: Coarse sounds ABD: soft, NT, ND, +BS - GRAVID : Intact Neuro: non focal SKIN: chronic changes EXT: trace edema Results/Medications Result Diagram: 09/01/18 0633 09/01/18 0633 Results 24 hrs Laboratory Tests Test 09/02/18 00:50 09/02/18 06:04 09/02/18 06:53 09/02/18 07:52 Bedside Glucose 107 122 130 Troponin I 0.056 Test 09/02/18 10:16 09/02/18 11:57 Bedside Glucose 128 114 Home Meds Active Scripts Neomycin/Polymyxin/Hydrocort* (Cortisporin* Otic) 10 Ml Susp, 4 DROP RIGHT EAR QID, #1 EA Prov:KRISSY HYDE PA-C 06/08/18 Acetaminophen* (Tylenol*) 325 Mg Tablet, 2 TAB PO Q8 PRN for PAIN AND OR ELEVATED TEMP, #20 TAB Prov:MORENA DUNBAR MD 05/24/18 Neomycin/Polymyxin/Hydrocort* (Cortisporin* Otic) 10 Ml Susp, 4 DROP LEFT EAR QID for 7 Days, EA Prov:MORENA DUNBAR MD 05/24/18 Ciprofloxacin Hcl/HC (Cipro HC Otic Suspension) 10 Ml Drops.susp, 4 DROP OTIC BID for outter ear infection for 7 Days, #1 BOTTLE Prov:SARAH GERMAN DO 05/03/18 Reported Medications Nifedipine* (Procardia*) 20 Mg Cap, 20 MG PO Q6, CAP 02/03/14 Ferrous Gluconate (Iron) 1 Tab Tablet, 1 TAB PO DAILY 01/22/14 Pnv Cmb#21/Iron/Folic Acid ( Complete Caplet) 1 Tab Tablet, 1 TAB PO WILDA LY 09/18/13 Discontinued Scripts Amoxicillin* (Amoxicillin*) 500 Mg Cap, 500 MG PO TID for 7 Days, CAP Prov:MORENA DUNBAR MD 05/24/18 Acetaminophen* (Acetaminophen*) 500 MG Extra Strength Tablet, 500 MG PO Q4H PRN for PAIN AND OR ELEVATED TEMP, #30 TAB Prov:SARAH GERMAN DO 05/03/18 Ciprofloxacin Hcl* (Ciprofloxacin Hcl*) 500 Mg Tablet, 500 MG PO BID, #10 TAB Prov:NOEL GALLEGOS DO 02/20/17 Nitrofurantoin Monohyd Macrocr* (Macrobid*) 100 Mg Capsr, 100 MG PO BID for 3 Days, CAP Prov:NOEL GALLEGOS DO 02/20/17 Phenazopyridine Hcl* (Phenazopyridine Hcl*) 100 Mg Tablet, 100 MG PO TID, #8 TAB Prov:NOEL GALLEGOS DO 02/20/17 Naproxen* (Naproxen*) 500 Mg Tablet, 500 MG PO BID PRN for PAIN for 20 Days, TAB Prov:NOEL GALLEGOS DO 02/20/17 Medications Current Medications IV Flush (NS 3 ml) 3 ml PER PROTOCOL IV ; Start 08/30/18 at 23:30 Ferrous Gluconate (Fergon) 325 mg DAILY PO Last administered on 09/02/18at 08:36; Admin Dose 325 MG; Start 08/31/18 at 10:30 Prenat Multivit/ [place]/Iron/Folic Ac () 1 tab DAILY PO Last administered on 09/02/18at 08:35; Admin Dose 1 TAB; Start 08/31/18 at 09:30 Acetaminophen (Tylenol Tab) 325 mg Q6H PRN PO MILD PAIN(1-3)OR ELEVATED TEMP; Start 08/31/18 at 09:30 Aspirin (Halfprin) 81 mg DAILY PO ; Start 09/02/18 at 09:00 Docusate Sodium (Colace) 100 mg BID PRN PO CONSTIPATION; Start 09/01/18 at 14:30 Betamethasone Acet/Betameth SodPhos (Celestone Soluspan) 12 mg Q24H IM Last administered on 09/02/18at 01:55; Admin Dose 12 MG; Start 09/02/18 at 00:00; Stop 09/03/18 at 00:01 Insulin Aspart (Novolog Insulin Pen) WITH MEALS SC Last administered on 09/02/18at 08:17; Admin Dose 2 UNIT; Start 09/02/18 at 07:55 Diagnostic Test (Pha) (Accu-Chek) 1 ea FBSPP XX ; Start 09/02/18 at 06:00 Miscellaneous Information 1 ea NOTE XX ; Start 09/02/18 at 00:30 Glucose (Glutose) 15 gm Q15M PRN PO DECREASED GLUCOSE; Start 09/02/18 at 00:30 Glucose (Glutose) 22.5 gm Q15M PRN PO DECREASED GLUCOSE; Start 09/02/18 at 00:30 Dextrose (D50w Syringe) 25 ml Q15M PRN IV DECREASED GLUCOSE; Start 09/02/18 at 00:30 Dextrose (D50w Syringe) 50 ml Q15M PRN IV DECREASED GLUCOSE; Start 09/02/18 at 00:30 Glucagon (Glucagen) 1 mg Q15M PRN IM DECREASED GLUCOSE; Start 09/02/18 at 00:30 Glucose (Glutose) 15 gm Q15M PRN BUCCAL DECREASED GLUCOSE; Start 09/02/18 at 00:30 Assessment/Plan Hospital Course (Demo Recall) 1. Elevated troponins. The patient has elevated troponin in the setting of her episode of precordial chest pain. I consider her to be elevated risk because of . She is not unlikely for the patient having obstructive coronary artery disease, but she is for increased risk. There is suspicion for a coronary artery dissection. As such, I recommend the patient to be urgently transferred to PCI capable center for monitoring. We will not initiate heparin now as patient is chest pain-free and await for another set of troponins to be draw. I discussed this with Dr. Arcos at length. Her 2D echo appears to be normal at this particular point.I had a very long discussion with patient and her . 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 She is CP free now - I explained risk and benefit of LHC (including radiation risk to the fetus) vs watchful waiting - the patient iunderstood the risks - does not want LHC which is reasonable. I spoke with Dr. Bowden - she is aware of plan of care - ok with baby ASA now. Troponin down - re-checkin am, will monitor clinically now - no LHC planned now unless Sx. 2. Gestational diabetes. Defer to primary team for evaluation. monitorinbg now - normal. 3. A 33-year-old with recent appears to be normal, will allow Dr. Arcos to inform primary emergency management coordinator about the findings so far. 4. Shortness of breath, now resolved. Continue to monitor.RESOLVED. AMANDO AIKEN MD Sep 02, 2018 12:43
[2018-09-02 15:37] VITALS: BP 101/53; PULSE 86; RESP 19
[2018-09-02 19:50] VITALS: BP 107/55; PULSE 98; RESP 17
--- NOTE | 2018-09-02 21:13 | PN ---
Date/Time of Note Date/Time of Note DATE: 09/02/18 TIME: 21:11 Assessment/Plan VTE Prophylaxis Risk score (from Nsg)>0 risk: 2 SCD applied (from Nsg): Yes SCD contraindicated: low risk/ambulating Pharmacological prophylaxis: NA/contraindicated Pharm contraindication: low risk/ambulating Lines/Catheters IV Catheter Type (from Nrsg): Saline Lock Assessment/Plan Hospital Course Hospitalist Coverage/ Hospital Course Assessment and plan 1. Chest pain rule out ACS/ VTE. Consulted cardiology, OB. Recommend: transfer to Tertiary Care. CM aware/ involved. 2. Abn troponin, reviewed echo. 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 Need high risk care/ transfer. May need Cath, vs CTA. 3. 31-32 weeks, stable, observe 4. Anemia 5. Subclinical hypothyroidism 6. Exertional dyspnea. no hypoxia. vss/ sr 7. Gestational diabetes? 8. H/o section Subjective: 08/31 pressure-like chest discomfort yesterday with minimal exertion. Patient left the house to go to her clinic. No pleuritic pain. No recent travel ill contacts calf pain fever. She may have been diaphoretic during the pain. [place] a cold sensation in both of her hands. Pain lasted maybe 3 to 4 hours until she was in the ER and received a certain medication. No previous similar discomfort. I updated the patient and her significant other regarding the likelihood of requiring other testing such as a CAT scan. There they are aware of the patient's symptoms/ abnormal labs that requires further testing. -Cardiac risk factors: None ADDENDUM -will transfer to higher level of care for High risk . Need card iology, may need cath. 09/01: No chest pain dyspnea. Worried frustrated. I spoke to her regarding the options, and I recommended she be evaluated at a higher level of care. 09/02: No distress, Frustrated wants to go home. However I think her trop still needs to be evaluated at tertiary care. CM working with MAC. O: Vss sr PE No pallor JVD Regular no mrg Clear no tachypnea Bs dimin nt nd gravid No edema/[place] Result Diagram: 09/01/18 0633 09/01/18 0633 Results 24hrs Laboratory Tests Test 09/02/18 00:50 09/02/18 06:04 09/02/18 06:53 09/02/18 07:52 Bedside Glucose 107 122 130 Troponin I 0.056 Test 09/02/18 10:16 09/02/18 11:57 09/02/18 14:12 09/02/18 19:57 Bedside Glucose 128 114 179 123 Exam/Review of Systems Exam Vitals Vital Signs Date Temp Pulse Resp B/P (MAP) Pulse Ox O2 O2 Flow FiO2 Time Delivery Rate 09/02/18 98.5 98 17 107/55 98 19:50 (72) 08/31/18 Room Air 15:18 Intake and Output 09/01/18 09/01/18 09/02/18 1515:00 23:00 07:00 IntakeIntake Total 1060 ml 1200 ml 600 ml BalanceBalance 1060 ml 1200 ml 600 ml Results Results 24hrs Laboratory Tests Test 09/02/18 00:50 09/02/18 06:04 09/02/18 06:53 09/02/18 07:52 Bedside Glucose 107 122 130 Troponin I 0.056 Test 09/02/18 10:16 09/02/18 11:57 09/02/18 14:12 09/02/18 19:57 Bedside Glucose 128 114 179 123 Medications Medication Current Medications IV Flush (NS 3 ml) 3 ml PER PROTOCOL IV ; Start 08/30/18 at 23:30 Ferrous Gluconate (Fergon) 325 mg DAILY PO Last administered on 09/02/18at 08:36; Admin Dose 325 MG; Start 08/31/18 at 10:30 Prenat Multivit/ [place]/Iron/Folic Ac () 1 tab DAILY PO Last administered on 09/02/18at 08:35; Admin Dose 1 TAB; Start 08/31/18 at 09:30 Acetaminophen (Tylenol Tab) 325 mg Q6H PRN PO MILD PAIN(1-3)OR ELEVATED TEMP; Start 08/31/18 at 09:30 Aspirin (Halfprin) 81 mg DAILY PO Last administered on 09/02/18at 18:25; Admin Dose 81 MG; Start 09/02/18 at 09:00 Docusate Sodium (Colace) 100 mg BID PRN PO CONSTIPATION; Start 09/01/18 at 14:30 Betamethasone Acet/Betameth SodPhos ([place] Soluspan) 12 mg Q24H IM Last administered on 09/02/18at 01:55; Admin Dose 12 MG; Start 09/02/18 at 00:00; Stop 09/03/18 at 00:01 Diagnostic Test (Pha) (Accu-Chek) 1 ea FBSPP XX Last administered on 09/02/18at 20:08; Admin Dose 1 EA; Start 09/02/18 at 06:00 Miscellaneous Information 1 ea NOTE XX ; Start 09/02/18 at 00:30 Glucose (Glutose) 15 gm Q15M PRN PO DECREASED GLUCOSE; Start 09/02/18 at 00:30 Glucose (Glutose) 22.5 gm Q15M PRN PO DECREASED GLUCOSE; Start 09/02/18 at 00:30 Dextrose (D50w Syringe) 25 ml Q15M PRN IV DECREASED GLUCOSE; Start 09/02/18 at 00:30 Dextrose (D50w Syringe) 50 ml Q15M PRN IV DECREASED GLUCOSE; Start 09/02/18 at 00:30 Glucagon (Glucagen) 1 mg Q15M PRN IM DECREASED GLUCOSE; Start 09/02/18 at 00:30 Glucose (Glutose) 15 gm Q15M PRN BUCCAL DECREASED GLUCOSE; Start 09/02/18 at 00:30 Insulin Aspart (Novolog Insulin Pen) 2 HOURS AFTER MEALS SC Last administered on 09/02/18at 20:00; Admin Dose 2 UNIT; Start 09/02/18 at 19:55 KANG GEORGE MD Sep 02, 2018 21:13
[2018-09-03 00:02] VITALS: BP 95/58; PULSE 79; RESP 17
[2018-09-03] MEDS: BETAMET NA PHOS/AC(6 MG/ML) 2 ML INJ SYG IM SCH (00:13)
[2018-09-03 04:09] VITALS: BP 94/53; PULSE 92; RESP 17
[2018-09-03] MEDS: ACCU-CHEK XX SCH ×4 (05:43→19:55)
[2018-09-03 07:12] VITALS: BP 95/52; PULSE 79; RESP 18
[2018-09-03] MEDS: PRENATAL VITAMIN PO SCH (08:16)
[2018-09-03] MEDS: ASPIRIN (EC) 81 MG TAB PO SCH (08:16)
[2018-09-03] MEDS: FERROUS GLUCONATE (EC) 325 MG TAB PO SCH (08:17)
[2018-09-03] MEDS: INSULIN ASPART [NOVOLOG] 3 ML PEN SC SCH ×3 (10:20→21:16)
[2018-09-03 11:27] VITALS: BP 109/56; PULSE 96; RESP 18
--- NOTE | 2018-09-03 12:04 | CONS ---
Consult Date/Type/Reason Admit Date/Time Sep 01, 2018 at 07:41 Initial Consult Date Date/Time of Note DATE: 09/03/18 TIME: 12:02 Subjective NO acute events -pt stable - no CP- troponin down - not able to transfer to PCI center so far, but not doing much better - pt declined LHC for risk of XRT to fetus - will monitor another day - if stable - will cosider dispo with close outpt monitoring. ROS: No fever, no chills, no nausea, no vomiting, no diarrhea/constipation No recent weight changes No chest pain, no PND, no orthopnea No dizziness, blurred vision No thirst, no heat or cold intolerance Objective Vitals Vital Signs Date Temp Pulse Resp B/P (MAP) Pulse Ox O2 O2 Flow FiO2 Time Delivery Rate 09/03/18 98.3 96 18 109/56 97 11:27 (73) 08/31/18 Room Air 15:18 Intake and Output 09/02/18 09/02/18 09/03/18 1515:00 23:00 07:00 IntakeIntake Total 1200 ml 1300 ml 300 ml BalanceBalance 1200 ml 1300 ml 300 ml Exam General: WN/WD/NAD, AOx 3 HEENT: Unicetric/atraumatic/EOMI (follow commands) NECK: JVD elevated, no thyromegaly Lymph: no lymphadenopathy HEART: regular with no S3, II/ systolic murmur at apex LUNGS: Coarse sounds ABD: soft, NT, ND, +BS - GRAVID : Intact Neuro: non focal SKIN: chronic changes EXT: trace edema Results/Medications Result Diagram: 09/01/18 0633 09/01/18 0633 Results 24 hrs Laboratory Tests Test 09/02/18 14:12 09/02/18 19:57 09/03/18 05:55 09/03/18 10:12 Bedside Glucose 179 123 141 Troponin I 0.029 Home Meds Active Scripts Neomycin/Polymyxin/Hydrocort* (Cortisporin* Otic) 10 Ml Susp, 4 DROP RIGHT EAR QID, #1 EA Prov:KRISSY HYDE PA-C 06/08/18 Acetaminophen* (Tylenol*) 325 Mg Tablet, 2 TAB PO Q8 PRN for PAIN AND OR ELEVATED TEMP, #20 TAB Prov:MORENA DUNBAR MD 05/24/18 Neomycin/Polymyxin/Hydrocort* (Cortisporin* Otic) 10 Ml Susp, 4 DROP LEFT EAR QID for 7 Days, EA Prov:MORENA DUNBAR MD 05/24/18 Ciprofloxacin Hcl/HC (Cipro HC Otic Suspension) 10 Ml Drops.susp, 4 DROP OTIC BID for outter ear infection for 7 Days, #1 BOTTLE Prov:SARAH GERMAN DO 05/03/18 Reported Medications Nifedipine* (Procardia*) 20 Mg Cap, 20 MG PO Q6, CAP 02/03/14 Ferrous Gluconate (Iron) 1 Tab Tablet, 1 TAB PO DAILY 01/22/14 Pnv Cmb#21/Iron/Folic Acid ( Complete Caplet) 1 Tab Tablet, 1 TAB PO DAILY 09/18/13 Discontinued Scripts Amoxicillin* (Amoxicillin*) 500 Mg Cap, 500 MG PO TID for 7 Days, CAP Prov:MORENA DUNBAR MD 05/24/18 Acetaminophen* (Acetaminophen*) 500 MG Extra Strength Tablet, 500 MG PO Q4H PRN for PAIN AND OR ELEVATED TEMP, #30 TAB Prov:SARAH GERMAN DO 05/03/18 Ciprofloxacin Hcl* (Ciprofloxacin Hcl*) 500 Mg Tablet, 500 MG PO BID, #10 TAB Prov:NOEL GALLEGOS DO 02/20/17 Nitrofurantoin Monohyd Macrocr* (Macrobid*) 100 Mg Capsr, 100 MG PO BID for 3 Days, CAP Prov:NOEL GALLEGOS DO 02/20/17 Phenazopyridine Hcl* (Phenazopyridine Hcl*) 100 Mg Tablet, 100 MG PO TID, #8 TAB Prov:NOEL GALLEGOS DO 02/20/17 Naproxen* (Naproxen*) 500 Mg Tablet, 500 MG PO BID PRN for PAIN for 20 Days, TAB Prov:NOEL GALLEGOS DO 02/20/17 Medications Current Medications IV Flush (NS 3 ml) 3 ml PER PROTOCOL IV ; Start 08/30/18 at 23:30 Ferrous Gluconate (Fergon) 325 mg DAILY PO Last administered on 09/03/18at 08:17; Admin Dose 325 MG; Start 08/31/18 at 10:30 Prenat Multivit/ [place]/Iron/Folic Ac () 1 tab DAILY PO Last administered on 09/03/18at 08:16; Admin Dose 1 TAB; Start 08/31/18 at 09:30 Acetaminophen (Tylenol Tab) 325 mg Q6H PRN PO MILD PAIN(1-3)OR ELEVATED TEMP; Start 08/31/18 at 09:30 Aspirin (Halfprin) 81 mg DAILY PO Last administered on 09/03/18at 08:16; Admin Dose 81 MG; Start 09/02/18 at 09:00 Docusate Sodium (Colace) 100 mg BID PRN PO CONSTIPATION; Start 09/01/18 at 14:30 Diagnostic Test (Pha) (Accu-Chek) 1 ea FBSPP XX Last administered on 09/02/18at 20:08; Admin Dose 1 EA; Start 09/02/18 at 06:00 Miscellaneous Information 1 ea NOTE XX ; Start 09/02/18 at 00:30 Glucose (Glutose) 15 gm Q15M PRN PO DECREASED GLUCOSE; Start 09/02/18 at 00:30 Glucose (Glutose) 22.5 gm Q15M PRN PO DECREASED GLUCOSE; Start 09/02/18 at 00:30 Dextrose (D50w Syringe) 25 ml Q15M PRN IV DECREASED GLUCOSE; Start 09/02/18 at 00:30 Dextrose (D50w Syringe) 50 ml Q15M PRN IV DECREASED GLUCOSE; Start 09/02/18 at 00:30 Glucagon (Glucagen) 1 mg Q15M PRN IM DECREASED GLUCOSE; Start 09/02/18 at 00:30 Glucose (Glutose) 15 gm Q15M PRN BUCCAL DECREASED GLUCOSE; Start 09/02/18 at 00:30 Insulin Aspart (Novolog Insulin Pen) 2 HOURS AFTER MEALS SC Last administered on 09/03/18at 10:20; Admin Dose 4 UNIT; Start 09/02/18 at 19:55 Assessment/Plan Hospital Course (Demo Recall) 1. Elevated troponins. The patient has elevated troponin in the setting of her episode of precordial chest pain. I consider her to be elevated risk because of . She is not unlikely for the patient having obstructive coronary artery disease, but she is for increased risk. There is suspicion for a coronary artery dissection. As such, I recommend the patient to be urgently transferred to PCI capable center for monitoring. We will not initiate heparin now as patient is chest pain-free and await for another set of troponins to be draw. I discussed this with Dr. Arcos at length. Her 2D echo appears to be normal at this particular point.I had a very long discussion with patient and her . 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 She is CP free now - I explained risk and benefit of LHC (including radiation risk to the fetus) vs watchful waiting - the patient iunderstood the risks - does not want LHC which is reasonable. I spoke with Dr. Bowden - she is aware of plan of care - ok with baby ASA now. Troponin down - re-checkin am, will monitor clinically now - no LHC planned now unless Sx. Pt remainss table - will consider dispo on Tuesday with close outpt f/up if stable. 2. Gestational diabetes. Defer to primary team for evaluation. monitorinbg now - normal. 3. A 33-year-old with recent appears to be normal, will allow Dr. Arcos to inform primary talent consultant about the findings so far. Fetus testing was OK. 4. Shortness of breath, now resolved. Continue to monitor.RESOLVED. AMANDO AIKEN MD Sep 03, 2018 12:04
[2018-09-03 16:08] VITALS: BP 104/68; PULSE 87; RESP 18
--- NOTE | 2018-09-03 18:00 | PN ---
Date/Time of Note Date/Time of Note DATE: 09/03/18 TIME: 17:58 Assessment/Plan VTE Prophylaxis Risk score (from Nsg)>0 risk: 2 SCD applied (from Nsg): Yes SCD contraindicated: low risk/ambulating Pharmacological prophylaxis: NA/contraindicated Pharm contraindication: low risk/ambulating Lines/Catheters IV Catheter Type (from Nrsg): Saline Lock Assessment/Plan Hospital Course Hospitalist Coverage/ Hospital Course A/P 1. Chest pain, rule out ACS/ VTE. Consulted cardiology, OB. Recomm: transfer to Tertiary Care. CM aware/ involved. 2. Abn troponin, reviewed echo. Concern of coronary artery dissection. Need high risk care/ transfer. May need Cath vs CTA vs conservative mngmnt. 3. 31-32 weeks, stable, observe. planned 4. Anemia 5. Subclinical hypothyroidism 6. Exertional dyspnea. no hypoxia. vss/ sr 7. Gestational diabetes? 8. H/o section Subjective: 08/31 pressure-like chest discomfort yesterday with minimal exertion. Patient left the house to go to her clinic. No pleuritic pain. No recent travel ill contacts calf pain fever. She may have been diaphoretic during the pain. [place] a cold sensation in both of her hands. Pain lasted maybe 3 to 4 hours until she was in the ER and received a certain medication. No previous similar discomfort. I updated the patient and her significant other regarding the likelihood of requiring other testing such as a CAT scan. There they are aware of the patient's symptoms/ abnormal labs that requires further testing. -Cardiac risk factors: None ADDENDUM -will transfer to higher level of care for High risk . Need cardiology, may need cath. 09/01: No chest pain dyspnea. Worried frustrated. I spoke to her regarding the options, and I recommended she be evaluated at a higher level of care. 09/02: No distress, Frustrated wants to go home. However I think her trop still needs to be evaluated at tertiary care. CM working with MAC. 09/03: no distress. wants to go home O: Vss sr PE No pallor/ JVD Regular no mrg Clear no tachypnea Bs dimin nt nd. gravid No edema Result Diagram: 09/01/18 0633 09/01/18 0633 Results 24hrs Laboratory Tests Test 09/02/18 19:57 09/03/18 05:55 09/03/18 10:12 09/03/18 15:02 Bedside Glucose 123 141 137 Troponin I 0.029 Exam/Review of Systems Exam Vitals Vital Signs Date Temp Pulse Resp B/P (MAP) Pulse Ox O2 O2 Flow FiO2 Time Delivery Rate 09/03/18 98.3 87 18 104/68 97 16:08 (80) 08/31/18 Room Air 15:18 Intake and Output 09/02/18 09/02/18 09/03/18 1515:00 23:00 07:00 IntakeIntake Total 1200 ml 1300 ml 300 ml BalanceBalance 1200 ml 1300 ml 300 ml Results Results 24hrs Laboratory Tests Test 09/02/18 19:57 09/03/18 05:55 09/03/18 10:12 09/03/18 15:02 Bedside Glucose 123 141 137 Troponin I 0.029 Medications Medication Current Medications IV Flush (NS 3 ml) 3 ml PER PROTOCOL IV ; Start 08/30/18 at 23:30 Ferrous Gluconate (Fergon) 325 mg DAILY PO Last administered on 09/03/18at 08:17; Admin Dose 325 MG; Start 08/31/18 at 10:30 Prenat Multivit/ [place]/Iron/Folic Ac () 1 tab DAILY PO Last administered on 09/03/18at 08:16; Admin Dose 1 TAB; Start 08/31/18 at 09:30 Acetaminophen (Tylenol Tab) 325 mg Q6H PRN PO MILD PAIN(1-3)OR ELEVATED TEMP; Start 08/31/18 at 09:30 Aspirin (Halfprin) 81 mg DAILY PO Last administered on 09/03/18at 08:16; Admin Dose 81 MG; Start 09/02/18 at 09:00 Docusate Sodium (Colace) 100 mg BID PRN PO CONSTIPATION; Start 09/01/18 at 14:30 Diagnostic Test (Pha) (Accu-Chek) 1 ea FBSPP XX Last administered on 09/02/18at 20:08; Admin Dose 1 EA; Start 09/02/18 at 06:00 Miscellaneous Information 1 ea NOTE XX ; Start 09/02/18 at 00:30 Glucose (Glutose) 15 gm Q15M PRN PO DECREASED GLUCOSE; Start 09/02/18 at 00:30 Glucose (Glutose) 22.5 gm Q15M PRN PO DECREASED GLUCOSE; Start 09/02/18 at 00:30 Dextrose (D50w Syringe) 25 ml Q15M PRN IV DECREASED GLUCOSE; Start 09/02/18 at 00:30 Dextrose (D50w Syringe) 50 ml Q15M PRN IV DECREASED GLUCOSE; Start 09/02/18 at 00:30 Glucagon (Glucagen) 1 mg Q15M PRN IM DECREASED GLUCOSE; Start 09/02/18 at 00:30 Glucose (Glutose) 15 gm Q15M PRN BUCCAL DECREASED GLUCOSE; Start 09/02/18 at 00:30 Insulin Aspart (Novolog Insulin Pen) 2 HOURS AFTER MEALS SC Last administered on 09/03/18at 15:12; Admin Dose 2 UNIT; Start 09/02/18 at 19:55 KANG GEORGE MD Sep 03, 2018 18:00
--- NOTE | 2018-09-03 19:19 | PN ---
Date/Time of Note Date/Time of Note DATE: 09/03/18 TIME: 19:08 OB Subjective Subjective Subjective late entry for vit on 09/01/1807/16/2229 ( earlier Dr Hardy called reported they are going to keep the patient for coronary dissection syndrome) no c/o chest pain or tightness or SOB concerning that transfer to [facility] declined movement adequate OB Objective Objective Objective VSS afebrile O2 sat room air 97-98 NST CAT I tracing OB Assessment/Plan Other Assessment: A IUP 31w6 A1DM ? coronary dissection syndrome Other plan: F/U with support manager close observation with monitoring,adjust mothers condition ZAIDA GARCIA MD Sep 03, 2018 19:18
[2018-09-03 19:23] VITALS: BP 103/60; PULSE 84; RESP 17
--- NOTE | 2018-09-03 19:28 | QN ---
Documentation Comment late entry for service rendered on 09/02/1808/17/1639 no subjective symptoms movement good PPBS 179 had cheese cake 2unit novolog given according to sliding scale provided by perinatalogist A IUP 32w A2DM s/p x1 betamethasone P second BMZ will b given 09/03/1809/15/199 reduce NST to Q shift to let patient rest add ppbs after dinner waw 123 ZAIDA GARCIA MD Sep 03, 2018 19:28
--- NOTE | 2018-09-03 20:52 | QN ---
Documentation Comment no chest pain or SOB or even chest tightness or dizzynes or palpitation movement good VSS O2 sat 97 BS still require 2units pp troponin level stable A IUP 32w1d GDM s/p BMZ x2 on BSA P ? plan ZAIDA Sharp MD Sep 03, 2018 20:52
[2018-09-04 00:13] VITALS: BP 100/52; PULSE 88; RESP 17
[2018-09-04 04:10] VITALS: BP 112/59; PULSE 85; RESP 17
[2018-09-04] MEDS: ACCU-CHEK XX SCH ×4 (06:00→19:55)
[2018-09-04 07:35] VITALS: BP 97/55; PULSE 86; RESP 18
[2018-09-04] MEDS: FERROUS GLUCONATE (EC) 325 MG TAB PO SCH (08:10)
[2018-09-04] MEDS: ASPIRIN (EC) 81 MG TAB PO SCH (08:10)
[2018-09-04] MEDS: PRENATAL VITAMIN PO SCH (08:10)
[2018-09-04] MEDS: INSULIN ASPART [NOVOLOG] 3 ML PEN SC SCH ×3 (09:55→19:55)
[2018-09-04 12:07] VITALS: BP 93/50; PULSE 74; RESP 18
[2018-09-04 16:19] VITALS: BP 112/56; PULSE 86; RESP 17
--- NOTE | 2018-09-04 17:09 | CONS ---
Assessment/Plan Assessment/Plan Hospital Course (Demo Recall) IMP: 1.positive troponin-now trended negative. NO chest pain, ? coronary artery dissection as at risk for this but no active chest pain/sig ECG changes. Refuses cath 2.Chest pain-resolved at this time 3. 32 weeks Recc: -Tele -recheck ECG -Continue asa -If no recurrent sx or significant ecg changes then patient is ok for d/c from cardiac standpoint with outpatient f/u Consultation Date/Type/Reason Admit Date/Time Sep 01, 2018 at 07:41 Initial Consult Date 08/31/18 Type of Consult Cardiology Reason for Consultation chest pain Requesting Provider: REGINALDO CABRERA MD Date/Time of Note DATE: 09/04/18 TIME: 17:03 Exam/Review of Systems Vital Signs Vitals Vital Signs Date Temp Pulse Resp B/P (MAP) Pulse Ox O2 O2 Flow FiO2 Time Delivery Rate 09/04/18 97.8 86 17 112/56 98 16:19 (74) 08/31/18 Room Air 15:18 Intake and Output 09/03/18 09/03/18 09/04/18 1515:00 23:00 07:00 IntakeIntake Total 1200 ml 500 ml 1500 ml BalanceBalance 1200 ml 500 ml 1500 ml Exam Exam Review of Systems: CONSTITUTIONAL: No fevers, chills. PULMONARY: No sob CARDIOVASCULAR: No current chest pain GASTROINTESTINAL: No nausea/vomiting. GENITOURINARY: No hematuria/dysuria. MUSCULOSKELETAL: No myagias/arthalgias. PSYCHIATRIC: The patient denies depression. NEUROLOGIC: No weakness Constitutional: alert Psych: no complaints Head: normocephalic ENMT: mucosa pink and moist Neck: supple, jvd (9 cm warter) Respiratory: clear to auscultation Cardiovascular: regular rate and rhythm Gastrointestinal: soft, non-tender Musculoskeletal: muscle tone (normal) Extremities: edema (none) Labs Result Diagram: 09/01/18 0633 09/01/18 0633 Results 24hrs Laboratory Tests Test 09/03/18 20:00 09/04/18 06:15 09/04/18 10:12 09/04/18 13:58 Bedside Glucose 134 111 132 Troponin I 0.018 Test 09/04/18 14:33 Bedside Glucose 140 Medications Medications Current Medications IV Flush (NS 3 ml) 3 ml PER PROTOCOL IV ; Start 08/30/18 at 23:30 Ferrous Gluconate (Fergon) 325 mg DAILY PO Last administered on 09/04/18 08:10; Admin Dose 325 MG; Start 08/31/18 at 10:30 Prenat Multivit/ [place]/Iron/Folic Ac () 1 tab DAILY PO Last administered on 09/04/18 08:10; Admin Dose 1 TAB; Start 08/31/18 at 09:30 Acetaminophen (Tylenol Tab) 325 mg Q6H PRN PO MILD PAIN(1-3)OR ELEVATED TEMP; Start 08/31/18 at 09:30 Aspirin (Halfprin) 81 mg DAILY PO Last administered on 09/04/18 08:10; Admin Dose 81 MG; Start 09/02/18 at 09:00 Docusate Sodium (Colace) 100 mg BID PRN PO CONSTIPATION Last administered on 09/04/18 10:16; Admin Dose 100 MG; Start 09/01/18 at 14:30 Diagnostic Test (Pha) (Accu-Chek) 1 ea FBSPP XX Last administered on 09/04/18 14:33; Admin Dose 1 EA; Start 09/02/18 at 06:00 Miscellaneous Information 1 ea NOTE XX ; Start 09/02/18 at 00:30 Glucose (Glutose) 15 gm Q15M PRN PO DECREASED GLUCOSE; Start 09/02/18 at 00:30 Glucose (Glutose) 22.5 gm Q15M PRN PO DECREASED GLUCOSE; Start 09/02/18 at 00:30 Dextrose (D50w Syringe) 25 ml Q15M PRN IV DECREASED GLUCOSE; Start 09/02/18 at 00:30 Dextrose (D50w Syringe) 50 ml Q15M PRN IV DECREASED GLUCOSE; Start 09/02/18 at 00:30 Glucagon (Glucagen) 1 mg Q15M PRN IM DECREASED GLUCOSE; Start 09/02/18 at 00:30 Glucose (Glutose) 15 gm Q15M PRN BUCCAL DECREASED GLUCOSE; Start 09/02/18 at 00:30 Insulin Aspart (Novolog Insulin Pen) 2 HOURS AFTER MEALS SC Last administered on 09/04/18 14:37; Admin Dose 2 UNIT; Start 09/02/18 at 19:55 REBA MONZON 8, 2019 17:09
--- NOTE | 2018-09-04 18:01 | PN ---
Date/Time of Note Date/Time of Note DATE: 09/04/18 TIME: 18:00 Assessment/Plan VTE Prophylaxis Risk score (from Nsg)>0 risk: 1 SCD applied (from Nsg): Yes Pharmacological prophylaxis: NA/contraindicated Pharm contraindication: low risk/ambulating Lines/Catheters IV Catheter Type (from Nrsg): Saline Lock Assessment/Plan Assessment/Plan A/P 1. Chest pain, rule out ACS/ VTE. Consulted cardiology 2. Abn troponin, reviewed echo. Concern of coronary artery dissection. 3. 31-32 weeks 4. Anemia 5. Subclinical hypothyroidism 6. Exertional dyspnea. no hypoxia. vss/ sr 7. Gestational diabetes? 8. H/o section Dispo: After very concerning cardiac history, she is now asymptomatic with trops trending down. If repeat EKG is normal, plan for discharge home with strict ED precautions. Result Diagram: 09/01/1863209/01/18632 Subjective 24 Hr Interval Summary Free Text/Dictation Chest pain has resolved. Exam/Review of Systems Exam Vitals Vital Signs Date Temp Pulse Resp B/P (MAP) Pulse Ox O2 O2 Flow FiO2 Time Delivery Rate 09/04/18 97.8 86 17 112/56 98 16:19 (74) 08/31/18 Room Air 15:18 Intake and Output 09/03/18 09/03/18 09/04/18 1515:00 23:00 07:00 IntakeIntake Total 1200 ml 500 ml 1500 ml BalanceBalance 1200 ml 500 ml 1500 ml Exam No pallor/ JVD Regular no mrg Clear no tachypnea Bs dimin nt nd. gravid No edema Results Results 24hrs Laboratory Tests Test 09/03/18 20:00 09/04/18 06:15 09/04/18 10:12 09/04/18 13:58 Bedside Glucose 134 111 132 Troponin I 0.018 Test 09/04/18 14:33 Bedside Glucose 140 Medications Medication Current Medications IV Flush (NS 3 ml) 3 ml PER PROTOCOL IV ; Start 08/30/18 at 23:30 Ferrous Gluconate (Fergon) 325 mg DAILY PO Last administered on 09/04/18at 08:10; Admin Dose 325 MG; Start 08/31/18 at 10:30 Prenat Multivit/ [place]/Iron/Folic Ac () 1 tab DAILY PO Last administered on 09/04/18 08:10; Admin Dose 1 TAB; Start 08/31/18 at 09:30 Acetaminophen (Tylenol Tab) 325 mg Q6H PRN PO MILD PAIN(1-3)OR ELEVATED TEMP; Start 08/31/18 at 09:30 Aspirin (Halfprin) 81 mg DAILY PO Last administered on 09/04/18 08:10; Admin Dose 81 MG; Start 09/02/18 at 09:00 Docusate Sodium (Colace) 100 mg BID PRN PO CONSTIPATION Last administered on 09/04/18 10:16; Admin Dose 100 MG; Start 09/01/18 at 14:30 Diagnostic Test (Pha) (Accu-Chek) 1 ea FBSPP XX Last administered on 09/04/18 14:33; Admin Dose 1 EA; Start 09/02/18 at 06:00 Miscellaneous Information 1 ea NOTE XX ; Start 09/02/18 at 00:30 Glucose (Glutose) 15 gm Q15M PRN PO DECREASED GLUCOSE; Start 09/02/18 at 00:30 Glucose (Glutose) 22.5 gm Q15M PRN PO DECREASED GLUCOSE; Start 09/02/18 at 00:30 Dextrose (D50w Syringe) 25 ml Q15M PRN IV DECREASED GLUCOSE; Start 09/02/18 at 00:30 Dextrose (D50w Syringe) 50 ml Q15M PRN IV DECREASED GLUCOSE; Start 09/02/18 at 00:30 Glucagon (Glucagen) 1 mg Q15M PRN IM DECREASED GLUCOSE; Start 09/02/18 at 00:30 Glucose (Glutose) 15 gm Q15M PRN BUCCAL DECREASED GLUCOSE; Start 09/02/18 at 00:30 Insulin Aspart (Novolog Insulin Pen) 2 HOURS AFTER MEALS SC Last administered on 09/04/18 14:37; Admin Dose 2 UNIT; Start 09/02/18 at 19:55 REBA VENCES MD Sep 04, 2018 18:01
[2018-09-04 20:20] VITALS: BP 111/55; PULSE 93; RESP 18
[2018-09-05 01:07] VITALS: BP 105/60; PULSE 77; RESP 18
[2018-09-05 04:00] VITALS: BP 94/50; PULSE 77; RESP 18
[2018-09-05] MEDS: ACCU-CHEK XX SCH ×2 (05:57→10:15)
[2018-09-05 07:32] VITALS: BP 94/51; PULSE 62; RESP 17
[2018-09-05] MEDS: PRENATAL VITAMIN PO SCH (08:11)
[2018-09-05] MEDS: ASPIRIN (EC) 81 MG TAB PO SCH (08:11)
[2018-09-05] MEDS: FERROUS GLUCONATE (EC) 325 MG TAB PO SCH (08:11)
[2018-09-05] MEDS ORDERED: ASPI-1044 PO (09:18)
--- NOTE | 2018-09-05 09:21 | PDOCDIS ---
Discharge Instructions DIAGNOSIS Discharge Diagnosis NSTEMI, possibly due to coronary dissection. CONDITION [id number] Patient Condition: [id number] Good HOME CARE INSTRUCTIONS: [id number] Diet Instructions: [id number] Regular ACTIVITY: [id number] Activity Restrictions: [id number] Slowly Increase Activity FOLLOW UP/APPOINTMENTS Follow-up Plan 1. Take aspirin 81mg daily after discharge. 2. If your pressure-like chest pain comes back, return to a hospital with a cardiac catheterization lab. The closest one to you is [place] [facility]. 3. See your railway yard assistant as scheduled. REBA VENCES MD Sep 05, 2018 09:21
[2018-09-05] MEDS: INSULIN ASPART [NOVOLOG] 3 ML PEN SC SCH (09:55)
[2018-09-05 11:24] VITALS: BP 104/59; PULSE 82; RESP 17
--- NOTE | 2018-09-05 17:04 | DS ---
Date/Time of Note Date/Time of Note DATE: 09/05/18 TIME: 17:00 Discharge Summary Admission/Discharge Info Admit Date/Time Sep 01, 2018 at 07:41 Discharge Date/Time Sep 05, 2018 at 12:00 Discharge Diagnosis NSTEMI, possibly due to coronary dissection. Consults Dr. Torres, cardiology Dr. Bowden, obstetrics. Procedures None Hx of Present Illness Patient is a 33-year-old female who is 31 weeks who was brought to the hospital for tachycardia. Patient was having regular checkup. She said she stood up to go to the bathroom when she felt dizzy and pressure on her chest is radiating to her left shoulder. She said her heart rate was found to be as high as 183. Denied a history of arrhythmia or tachycardia. Currently patient does not have any complaints. Currently denies chest pain, shortness of breath, dizziness, palpitations. Heart rate has been in 90s. Thyroid profile was checked and free T4 is a slightly elevated. TSH is been pending. Patient will be admitted to telemetry unit for observation. Hospital Course On telemetry, the patient remained in normal sinus with no ectopy. Troponin elevated a 0.194. There was concern about NSTEMI. At her age coronary artery disease would be very unlikely, so more likely coronary dissection. Started on aspirin. We considered transfer to higher level of care for high-risk cardiac catheterization. However after a few days of observation troponin downtrended to negative, chest pain did not recur, and EKG showed no ischemia. The patient was discharged on aspirin and strict precautions to return to the ED for chest pain. Home Meds Active Scripts Aspirin Delayed Release (Aspirin Delayed Release) 81 Mg Tablet., 81 MG PO DAILY, #60 TAB 3 Refills Prov:REBA VENCES MD 09/05/18 Neomycin/Polymyxin/Hydrocort* (Cortisporin* Otic) 10 Ml Susp, 4 DROP RIGHT EAR QID, #1 EA Prov:KRISSY HYDE PA-C 06/08/18 Acetaminophen* (Tylenol*) 325 Mg Tablet, 2 TAB PO Q8 PRN for PAIN AND OR ELEVATED TEMP, #20 TAB Prov:MORENA DUNBAR MD 05/24/18 Neomycin/Polymyxin/Hydrocort* (Cortisporin* Otic) 10 Ml Susp, 4 DROP LEFT EAR QID for 7 Days, EA Prov:MORENA DUNBAR MD 05/24/18 Ciprofloxacin Hcl/HC (Cipro HC Otic Suspension) 10 Ml Drops.susp, 4 DROP OTIC BID for outter ear infection for 7 Days, #1 BOTTLE Prov:GERMANSARAH 05/03/18 Reported Medications Nifedipine* (Procardia*) 20 Mg Cap, 20 MG PO Q6, CAP 02/03/14 Ferrous Gluconate (Iron) 1 Tab Tablet, 1 TAB PO DAILY 01/22/14 Pnv Cmb#21/Iron/Folic Acid ( Complete Caplet) 1 Tab Tablet, 1 TAB PO DAILY 09/18/13 Discontinued Scripts Amoxicillin* (Amoxicillin*) 500 Mg Cap, 500 MG PO TID for 7 Days, CAP Prov:MORENA DUNBAR MD 05/24/18 Acetaminophen* (Acetaminophen*) 500 MG Extra Strength Tablet, 500 MG PO Q4H PRN for PAIN AND OR ELEVATED TEMP, #30 TAB Prov:SARAH GERMAN DO 05/03/18 Ciprofloxacin Hcl* (Ciprofloxacin Hcl*) 500 Mg Tablet, 500 MG PO BID, #10 TAB Prov:NOEL GALLEGOS DO 02/20/17 Nitrofurantoin Monohyd Macrocr* (Macrobid*) 100 Mg Capsr, 100 MG PO BID for 3 Days, CAP Prov:NOEL GALLEGOS DO 02/20/17 Phenazopyridine Hcl* (Phenazopyridine Hcl*) 100 Mg Tablet, 100 MG PO TID, #8 TAB Prov:NOEL GALLEGOS DO 02/20/17 Naproxen* (Naproxen*) 500 Mg Tablet, 500 MG PO BID PRN for PAIN for 20 Days, TAB Prov:NOEL GALLEGOS DO 02/20/17 Follow-up Plan 1. Take aspirin 81mg daily after discharge. 2. If your pressure-like chest pain comes back, return to a hospital with a cardiac catheterization lab. The closest one to you is [place] or [facility]. 3. See your engineering drafter as scheduled. Primary Care Provider Care Physician No Primary Time spent on discharge: > 30 minutes Pending Labs Laboratory Tests Test 09/04/18 20:50 09/05/18 05:56 09/05/18 10:14 Bedside Glucose 114 mg/dL (70-220) 94 mg/dL (70-220) 97 mg/dL (70-220) REBA VENCES MD Sep 05, 2018 17:04
--- NOTE | 2018-09-06 16:34 | RADRPT ---
Vent Rate: 84 bpm RR Interval: 712 msec VT Interval: 141 msec QRS Duration: 78 msec QT Interval: 367 msec QTC Interval: 435 msec P-R-T [place]: 63 - 80 - 56 degrees Sinus rhythm...normal P axis, V-rate 50- 99 Electronically Signed By: Be Shea
== END 2018-09-05 12:00 | disposition home or self-care (01) | DRG 831 ==
LOC: OBT 17:56 → L-D 17:59 → INTOOBSV 23:55 → OBT 23:55 → TEL 23:55 → OBSVTOIN 09-01 07:41
PROVIDERS: ADMIT Internal Medicine; ATTEND Internal Medicine
DX: O99.413 Diseases of the circulatory system complicating pregnancy, third trimester (principal); I21.4 Non-ST elevation (NSTEMI) myocardial infarction; Z3A.32 32 weeks gestation of pregnancy; O24.419 Gestational diabetes mellitus in pregnancy, unspecified control; O99.013 Anemia complicating pregnancy, third trimester; O99.283 Endocrine, nutritional and metabolic diseases complicating pregnancy, third trimester; E03.8 Other specified hypothyroidism; O34.219 Maternal care for unspecified type scar from previous cesarean delivery
CPT/HCPCS: 76805; 76818; 80053; 81003; 82550; 82553; 82962; 83036; 83735; 84100; 84436; 84439; 84443; 84479; 84480; 84484; 85025; 85610; 93005; 93306; 93970; G0378; G0463; J0702; J1815; J7040

== ENCOUNTER 2018-10-25 05:40 | Inpatient (IN) | payer MEDICAID ==
[~2018-10-25] VITALS: Ht 160 cm; Wt 81.8 kg
[~2018-10-25 05:40] MED LIST changes: -ACET-141 PO; -AMOX500C2 PO; +ASPI-1044 PO; -CIPR500T4 PO; -NAPR-688 PO; -NITR-58 PO; -PHEN-716 PO
[2018-10-25] MEDS ORDERED: LACTATED RINGER'S 1,000 ML IV SCH ×2 (05:52→12:20)
[2018-10-25 06:00] VITALS: BP 86/52; PULSE 81; RESP 16; Ht 160 cm; Wt 81.8 kg
[2018-10-25] MEDS ORDERED: METHYLERGONOVINE 0.2 MG INJ IM PRN ×2 (06:00→12:30)
[2018-10-25] MEDS ORDERED: OXYTOCIN 30 UNITS/LR 500 ML IV SCH ×2 (06:00→12:20)
[2018-10-25] MEDS ORDERED: CARBOPROST 250 MCG INJ IM PRN ×2 (06:00→12:30)
[2018-10-25] MEDS ORDERED: MISOPROSTOL 200 MCG TAB PR PRN ×2 (06:00→12:30)
[2018-10-25] MEDS ORDERED: CEFAZOLIN 2 GM/50 ML (PMX) 50 ML IVPB SCH (06:00)
[2018-10-25] MEDS ORDERED: OXYTOCIN 30 UNITS/LR 500 ML IV PRN ×2 (06:00→12:30)
[2018-10-25] MEDS ORDERED: PHENYLephrine (100 MCG/ML) 10ML SYG ONE (07:26)
[2018-10-25] MEDS ORDERED: FENTAnyl 50 MCG/ML VIAL ONE (07:26)
[2018-10-25] MEDS ORDERED: morphine SULFATE/PF (10 MG/10 ML) INJ ONE (07:27)
[2018-10-25] MEDS ORDERED: ONDANSETRON 4 MG INJ ONE (07:27)
[2018-10-25] MEDS ORDERED: OXYTOCIN 10 UNIT INJ ONE (07:27)
[2018-10-25 12:15] VITALS: BP 105/70; PULSE 79; RESP 18
[2018-10-25] MEDS ORDERED: ZOLPIDEM 5 MG TAB PO PRN (12:30)
[2018-10-25] MEDS ORDERED: DIPHENHYDRAMINE 50 MG INJ IV PRN ×2 (12:30→17:00)
[2018-10-25] MEDS ORDERED: OXYCODONE/ACETAMINOPHEN (5/325) TAB PO PRN ×2 (12:30)
[2018-10-25] MEDS ORDERED: ONDANSETRON 4 MG INJ IV PRN ×2 (12:30→17:00)
[2018-10-25] MEDS ORDERED: LANOLIN HPA 1 PKT TOP PRN (12:30)
[2018-10-25 13:15] VITALS: BP 105/52; PULSE 78; RESP 18
[2018-10-25] MEDS: CLINDAMYCIN 900 MG (PMX) 50 ML IVPB SCH ×2 (14:02→22:45)
[2018-10-25] MEDS: CEFAZOLIN 2 GM/50 ML (PMX) 50 ML IVPB SCH (16:52)
[2018-10-25] MEDS ORDERED: NALBUPHINE HCL (10 MG/1 ML) INJ IV PRN (17:00)
[2018-10-25] MEDS ORDERED: NALOXONE (0.4 MG/ML) INJ IV PRN (17:00)
[2018-10-25] MEDS ORDERED: morphine 2 MG INJ IV PRN ×2 (17:00)
[2018-10-25] MEDS ORDERED: TRIMETHOBENZAMIDE 100 MG/ML VIAL IM PRN (17:00)
[2018-10-25 17:04] VITALS: BP 116/63; PULSE 80; RESP 18
[2018-10-25] MEDS: IBUPROFEN 600 MG TAB PO SCH (18:00)
[2018-10-25 19:40] VITALS: BP 100/50; PULSE 80; RESP 18
[2018-10-25] MEDS: SENNA/DOCUSATE NA (8.6MG/50MG) TAB PO SCH (21:00)
[2018-10-26] MEDS: CEFAZOLIN 2 GM/50 ML (PMX) 50 ML IVPB SCH ×2 (01:14→07:59)
[2018-10-26 03:20] VITALS: BP 91/52; PULSE 84; RESP 19
[2018-10-26] MEDS: CLINDAMYCIN 900 MG (PMX) 50 ML IVPB SCH (06:11)
[2018-10-26] MEDS: IBUPROFEN 600 MG TAB PO SCH ×5 (06:11→23:34)
[2018-10-26 08:00] VITALS: BP 91/55; PULSE 77; RESP 16
[2018-10-26] MEDS: SENNA/DOCUSATE NA (8.6MG/50MG) TAB PO SCH ×2 (11:59→20:58)
[2018-10-26 15:50] VITALS: BP 96/46; PULSE 82; RESP 16
[2018-10-26 19:40] VITALS: BP 95/54; PULSE 81; RESP 19
[2018-10-27 03:20] VITALS: BP 99/56; PULSE 69; RESP 16
[2018-10-27] MEDS: IBUPROFEN 600 MG TAB PO SCH ×4 (05:27→23:26)
[2018-10-27 07:30] VITALS: BP 103/57; PULSE 78; RESP 19
[2018-10-27] MEDS: SENNA/DOCUSATE NA (8.6MG/50MG) TAB PO SCH ×2 (08:49→21:51)
[2018-10-27 17:55] VITALS: BP 101/55; PULSE 82; RESP 18
[2018-10-27 20:00] VITALS: BP 105/52; PULSE 82; RESP 20
[2018-10-28] MEDS: IBUPROFEN 600 MG TAB PO SCH ×2 (05:14→11:36)
[2018-10-28 05:33] VITALS: BP 112/64; PULSE 74; RESP 18
[2018-10-28 07:40] VITALS: BP 97/52; PULSE 77; RESP 18
[2018-10-28] MEDS ORDERED: DIPHTH/TET/ACEL PERTUSS (ADULT) 0.5 ML VIAL IM* ONE (09:00)
[2018-10-28] MEDS: SENNA/DOCUSATE NA (8.6MG/50MG) TAB PO SCH (10:25)
[2018-10-28 15:55] VITALS: BP 101/64; PULSE 68; RESP 18
== END 2018-10-28 19:03 | disposition home or self-care (01) | DRG 785 ==
LOC: L-D 05:40 → PP1 12:14
PROVIDERS: ADMIT Obstetrics & Gynecology; ATTEND Obstetrics & Gynecology
PROC: 0UB70ZZ Excision of Bilateral Fallopian Tubes, Open Approach (ICD-10-PCS; 2018-10-25)
PROC: 4A1HXCZ Monitoring of Products of Conception, Cardiac Rate, External Approach (ICD-10-PCS; 2018-10-25)
PROC: 10D00Z1 Extraction of Products of Conception, Low, Open Approach (ICD-10-PCS; principal; 2018-10-25 07:30)
PROC: 3E0234Z Introduction of Serum, Toxoid and Vaccine into Muscle, Percutaneous Approach (ICD-10-PCS; 2018-10-28)
DX: O34.211 Maternal care for low transverse scar from previous cesarean delivery (principal); O24.420 Gestational diabetes mellitus in childbirth, diet controlled; O99.214 Obesity complicating childbirth; O99.02 Anemia complicating childbirth; Z3A.39 39 weeks gestation of pregnancy; Z87.891 Personal history of nicotine dependence; Z37.0 Single live birth; Z23 Encounter for immunization; Z30.2 Encounter for sterilization
CPT/HCPCS: 82962; 85025; 85610; 85730; 86592; 86850; 86900; 86901; 87340; 88302; 90715; 99464; J0690; J2274; J2370; J2405; J2590; J3010; J7120